=== PATIENT | female | born 2000 | race American Indian/Alaskan Native ===

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

== ENCOUNTER 2019-04-11 07:13 | Inpatient (IN) | payer OTHER ==
[2019-04-11] MEDS ORDERED: SODIUM CHLORIDE 0.9% 1000 ML 1,000 ML IV ONE ×2 (08:16→09:03)
[2019-04-11] MEDS ORDERED: ONDANSETRON 4 MG/2 ML INJ IV ONE ×2 (08:16→11:28)
[2019-04-11] MEDS ORDERED: PANTOPRAZOLE 40 MG INJ IV ONE (08:16)
[2019-04-11 08:37] LABS: Basophils % (Auto) 0.4 % (0.0-1.8); Eosinophils % (Auto) 0.2 % (0.0-4.3); Hematocrit 31.7 % (30.3-42.9); Hemoglobin 10.4 gm/dl (10.1-14.3); Lymphocytes # (Auto) 1.1 K/mm3 (1.2-5.4); Lymphocytes % (Auto) 16.8 % (13.4-35.0); Mean Corpuscular HGB Conc 33 % (30-34); Mean Corpuscular Volume 84 fl (79-97); Monocytes # (Auto) 0.2 K/mm3 (0.0-0.8); Monocytes % (Auto) 2.8 % (0.0-7.3); Platelet Count 243 K/mm3 (140-440); Red Blood Count 3.79 M/mm3 (3.65-5.03); Red Cell Distribution Width 19.2 % (13.2-15.2)
[2019-04-11 08:55] LABS: Creatine Kinase MB 1.4 ng/mL (0.0-4.0)
[2019-04-11 08:57] LABS: Alanine Aminotransferase 12 units/L (7-56); Albumin 4.4 g/dL (3.9-5); BUN/Creatinine Ratio 22; Blood Urea Nitrogen 13 mg/dL (7-17); Calcium 9.3 mg/dL (8.4-10.2); Hemolysis Index 0
[2019-04-11 09:07] LABS: Bilirubin,Direct < 0.2 mg/dL (0-0.2)
--- NOTE | 2019-04-11 09:15 | Emergency Department Report ---
ED General Adult HPI - General Chief complaint: Abdominal Pain Stated complaint: ABD PAIN Time Seen by Provider: 04/11/19 08:13 Source: EMS Mode of arrival: Wheelchair Limitations: No Limitations - History of Present Illness Initial comments: This is a 19-year-old female with a history of diabetic gastroparesis and apparently chronic pain. She does not usually come to this facility. She was seen and discharged a few times. Apparently she was verbal when EMS arrived. She expressed a desire to go to [place] for her gastroparesis symptoms. When she arrived at this facility she vomited. After that she ceased to be verbally responsive. An Accu-Chek was immediately obtained. Was found to be greater than 350. Nurses were unable to get access in the patient. Thereby I placed an external jugular line 22-gauge in the patient's neck. Fluid resuscitation was begun. She did appear to be substantially dehydrated. Vital signs were otherwise stabl e. Temperature is yet pending. -: unknown - Related Data Home Medications Medication Instructions Recorded Confirmed Last Taken Insulin NPH Hum/Reg Insulin Hm 1 each SQ 4XD 05/31/13 05/31/13 Unknown [Novolin 70-30 100 Unit/ml Vial] Previous Rx's Medication Instructions Recorded Last Taken Type Gentamicin 0.3% Ophth Soln 2 drops OP Q4H 5 Days bottle 10/27/14 Unknown Rx Amoxicillin [Amoxicillin TAB] 875 mg PO BID #20 tablet 03/13/17 Unknown Rx Gabapentin [Neurontin] 900 mg PO Q8HR #180 capsule 11/26/17 Unknown Rx Metoclopramide [Reglan] 10 mg PO BID #12 tab 12/12/17 Unknown Rx Famotidine [Pepcid] 20 mg PO BID #60 tablet 12/15/17 Unknown Rx Promethazine [Phenergan SUPPOS] 50 mg MI Q6H PRN #20 supp.rect 12/15/17 Unknown Rx Allergies Allergy/AdvReac Type Severity Reaction Status Date / Time clindamycin Allergy Swelling Verified 04/11/19 07:17 ED Review of Systems ROS: Stated complaint: ABD PAIN Other details as noted in HPI Comment: Unobtainable due to pts medical conditions ED Past Medical Hx - Past Medical History Hx Diabetes: Yes (on INSULIN) Additional medical history: Juvenile-onset diabetes, history of DKA. neuropathy - Social History Smoking Status: Never Smoker Substance Use Type: Marijuana - Medications Home Medications: Home Medications Medication Instructions Recorded Confirmed Last Taken Type Insulin NPH Hum/Reg Insulin Hm 1 each SQ 4XD 05/31/13 05/31/13 Unknown History [Novolin 70-30 100 Unit/ml Vial] Gentamicin 0.3% Ophth Soln 2 drops OP Q4H 5 Days bottle 10/27/14 Unknown Rx Amoxicillin [Amoxicillin TAB] 875 mg PO BID #20 tablet 03/13/17 Unknown Rx Gabapentin [Neurontin] 900 mg PO Q8HR #180 capsule 11/26/17 Unknown Rx Metoclopramide [Reglan] 10 mg PO BID #12 tab 12/12/17 Unknown Rx Famotidine [Pepcid] 20 mg PO BID #60 tablet 12/15/17 Unknown Rx Promethazine [Phenergan SUPPOS] 50 mg MI Q6H PRN #20 supp.rect 12/15/17 Unknown Rx ED Physical Exam - General Limitations: Altered Mental Status General appearance: lethargic - Head Head exam: Present: atraumatic, normocephalic - Eye Eye exam: Present: normal appearance, PERRL. Absent: scleral icterus - ENT ENT exam: Present: mucous membranes dry - Neck Neck exam: Present: normal inspection. Absent: tenderness, meningismus - Respiratory Respiratory exam: Present: normal lung sounds bilaterally. Absent: respiratory distress - Cardiovascular Cardiovascular Exam: Present: normal rhythm, tachycardia. Absent: systolic murmur, diastolic murmur, rubs, gallop - GI/Abdominal GI/Abdominal exam: Present: soft, normal bowel sounds. Absent: distended, tenderness, guarding, rebound, rigid - Extremities Exam Extremities exam: Present: normal inspection - Neurological Exam Neurological exam: Present: altered - Skin Skin exam: Present: warm, dry, intact, normal color. Absent: rash ED Course Vital Signs 04/11/19 04/11/19 04/11/19 07:19 09:15 10:00 Temperature 98.2 F Pulse Rate 103 H 106 H Respiratory 18 15 Rate Blood Pressure 144/110 157/109 O2 Sat by Pulse 98 100 100 Oximetry - Reevaluation(s) Reevaluation #1: Discussed with hospitalist. I am going to defer insulin drip for now. I believe is likely the patient will correct amply without a drip. She is gotten a saline bolus. She is gotten the supplemental potassium and IV insulin. Accu- Cheks will be monitored. Repeat BMP is ordered. 04/11/19 10:46 - EJ/Peripheral Line Neck L Time Out Performed: No Indications: nurses unable to establis Skin Cleansed in Sterile Fashion: Yes Size: 22 Dressing Placed: Tegaderm Patient Tolerated Procedure: well (Single attempt.) ED Medical Decision Making - Lab Data Result diagrams: 04/11/19 08:21 04/11/19 08:17 Laboratory Results - last 24 hr 04/11/19 04/11/19 04/11/19 08:17 08:18 08:19 WBC RBC Hgb Hct MCV MCH MCHC RDW Plt Count Lymph % (Auto) Woods % (Auto) Eos % (Auto) Baso % (Auto) Lymph # Woods # Eos # Baso # Seg Neutrophils % Seg Neutrophils # VBG pH Sodium 138 Potassium 3.6 Chloride 96.8 L Carbon Dioxide 19 L Anion Gap 26 BUN 13 Creatinine 0.6 L Estimated GFR > 60 BUN/Creatinine Ratio 22 Glucose 480 H POC Glucose Ketones Quantitative Lactic Acid 1.10 Calcium 9.3 Magnesium 2.10 Total Bilirubin 0.40 Direct Bilirubin < 0.2 Indirect Bilirubin 0.2 AST 16 ALT 12 Alkaline Phosphatase 83 Total Creatine Kinase 130 CK-MB (CK-2) 1.4 CK-MB (CK-2) Rel Index 1.0 Troponin T < 0.010 Total Protein 8.1 Albumin 4.4 Albumin/Globulin Ratio 1.2 Lipase 8 L HCG, Qual Negative 04/11/19 04/11/19 04/11/19 08:19 08:19 08:21 WBC 6.7 RBC 3.79 Hgb 10.4 Hct 31.7 MCV 84 MCH 27 L MCHC 33 RDW 19.2 H Plt Count 243 Lymph % (Auto) 16.8 Woods % (Auto) 2.8 Eos % (Auto) 0.2 Baso % (Auto) 0.4 Lymph # 1.1 L [place] # 0.2 Eos # 0.0 Baso # 0.0 Seg Neutrophils % 79.8 H Seg Neutrophils # 5.3 VBG pH 7.412 Sodium Potassium Chloride Carbon Dioxide Anion Gap BUN Creatinine Estimated GFR BUN/Creatinine Ratio Glucose POC Glucose Ketones Quantitative Small Lactic Acid Calcium Magnesium Total Bilirubin Direct Bilirubin Indirect Bilirubin AST ALT Alkaline Phosphatase Total Creatine Kinase CK-MB (CK-2) CK-MB (CK-2) Rel Index Troponin T Total Protein Albumin Albumin/Globulin Ratio Lipase HCG, Qual 04/11/19 08:24 WBC RBC Hgb Hct MCV MCH MCHC RDW Plt Count Lymph % (Auto) Woods % (Auto) Eos % (Auto) Baso % (Auto) Lymph # Woods # Eos # Baso # Seg Neutrophils % Seg Neutrophils # VBG pH Sodium Potassium Chloride Carbon Dioxide Anion Gap BUN Creatinine Estimated GFR BUN/Creatinine Ratio Glucose POC Glucose 354 H Ketones Quantitative Lactic Acid Calcium Magnesium Total Bilirubin Direct Bilirubin Indirect Bilirubin AST ALT Alkaline Phosphatase Total Creatine Kinase CK-MB (CK-2) CK-MB (CK-2) Rel Index Troponin T Total Protein Albumin Albumin/Globulin Ratio Lipase HCG, Qual Laboratory Results - last 24 hr 04/11/19 04/11/19 04/11/19 08:17 08:18 08:19 WBC RBC Hgb Hct MCV MCH MCHC RDW Plt Count Lymph % (Auto) [place] % (Auto) Eos % (Auto) Baso % (Auto) Lymph # [place] # Eos # Baso # Seg Neutrophils % Seg Neutrophils # VBG pH Sodium 138 Potassium 3.6 Chloride 96.8 L Carbon Dioxide 19 L Anion Gap 26 BUN 13 Creatinine 0.6 L Estimated GFR > 60 BUN/Creatinine Ratio 22 Glucose 480 H POC Glucose Ketones Quantitative Lactic Acid 1.10 Calcium 9.3 Magnesium 2.10 Total Bilirubin 0.40 Direct Bilirubin < 0.2 Indirect Bilirubin 0.2 AST 16 ALT 12 Alkaline Phosphatase 83 Total Creatine Kinase 130 CK-MB (CK-2) 1.4 CK-MB (CK-2) Rel Index 1.0 Troponin T < 0.010 Total Protein 8.1 Albumin 4.4 Albumin/Globulin Ratio 1.2 Lipase 8 L HCG, Qual Negative Urine Color Urine Turbidity Urine pH Ur Specific [place] Urine Protein Urine Glucose (UA) Urine Ketones Urine Blood Urine Nitrite Urine Bilirubin Urine Urobilinogen Ur Leukocyte Esterase Urine WBC (Auto) Urine RBC (Auto) U Epithel Cells (Auto) Urine Mucus Urine Opiates Screen Urine Methadone Screen Ur Barbiturates Screen Ur Phencyclidine Scrn Ur Amphetamines Screen U Benzodiazepines Scrn Urine Cocaine Screen U Marijuana (THC) Screen Drugs of Abuse Note 04/11/19 04/11/19 04/11/19 08:19 08:19 08:21 WBC 6.7 RBC 3.79 Hgb 10.4 Hct 31.7 MCV 84 MCH 27 L MCHC 33 RDW 19.2 H Plt Count 243 Lymph % (Auto) 16.8 Woods % (Auto) 2.8 Eos % (Auto) 0.2 Baso % (Auto) 0.4 Lymph # 1.1 L Woods # 0.2 Eos # 0.0 Baso # 0.0 Seg Neutrophils % 79.8 H Seg Neutrophils # 5.3 VBG pH 7.412 Sodium Potassium Chloride Carbon Dioxide Anion Gap BUN Creatinine Estimated GFR BUN/Creatinine Ratio Glucose POC Glucose Ketones Quantitative Small Lactic Acid Calcium Magnesium Total Bilirubin Direct Bilirubin Indirect Bilirubin AST ALT Alkaline Phosphatase Total Creatine Kinase CK-MB (CK-2) CK-MB (CK-2) Rel Index Troponin T Total Protein Albumin Albumin/Globulin Ratio Lipase HCG, Qual Urine Color Urine Turbidity Urine pH Ur Specific [place] Urine Protein Urine Glucose (UA) Urine Ketones Urine Blood Urine Nitrite Urine Bilirubin Urine Urobilinogen Ur Leukocyte Esterase Urine WBC (Auto) Urine RBC (Auto) U Epithel Cells (Auto) Urine Mucus Urine Opiates Screen Urine Methadone Screen Ur Barbiturates Screen Ur Phencyclidine Scrn Ur Amphetamines Screen U Benzodiazepines Scrn Urine Cocaine Screen U Marijuana (THC) Screen Drugs of Abuse Note 04/11/19 04/11/19 04/11/19 08:24 10:20 Unknown WBC RBC Hgb Hct MCV MCH MCHC RDW Plt Count Lymph % (Auto) Woods % (Auto) Eos % (Auto) Baso % (Auto) Lymph # [place] # Eos # Baso # Seg Neutrophils % Seg Neutrophils # VBG pH Sodium Potassium Chloride Carbon Dioxide Anion Gap BUN Creatinine Estimated GFR BUN/Creatinine Ratio Glucose POC Glucose 354 H 371 H Ketones Quantitative Lactic Acid Calcium Magnesium Total Bilirubin Direct Bilirubin Indirect Bilirubin AST ALT Alkaline Phosphatase Total Creatine Kinase CK-MB (CK-2) CK-MB (CK-2) Rel Index Troponin T Total Protein Albumin Albumin/Globulin Ratio Lipase HCG, Qual Urine Color Straw Urine Turbidity Clear Urine pH 6.0 Ur Specific [place] 1.030 Urine Protein 30 mg/dl Urine Glucose (UA) >=500 Urine Ketones 80 Urine Blood Sm Urine Nitrite Neg Urine Bilirubin Neg Urine Urobilinogen < 2.0 Ur Leukocyte Esterase Neg Urine WBC (Auto) < 1.0 Urine RBC (Auto) 4.0 U Epithel Cells (Auto) < 1.0 Urine Mucus Few Urine Opiates Screen Urine Methadone Screen Ur Barbiturates Screen Ur Phencyclidine Scrn Ur Amphetamines Screen U Benzodiazepines Scrn Urine Cocaine Screen U Marijuana (THC) Screen Drugs of Abuse Note 04/11/19 Unknown WBC RBC Hgb Hct MCV MCH MCHC RDW Plt Count Lymph % (Auto) [place] % (Auto) Eos % (Auto) Baso % (Auto) Lymph # [place] # Eos # Baso # Seg Neutrophils % Seg Neutrophils # VBG pH Sodium Potassium Chloride Carbon Dioxide Anion Gap BUN Creatinine Estimated GFR BUN/Creatinine Ratio Glucose POC Glucose Ketones Quantitative Lactic Acid Calcium Magnesium Total Bilirubin Direct Bilirubin Indirect Bilirubin AST ALT Alkaline Phosphatase Total Creatine Kinase CK-MB (CK-2) CK-MB (CK-2) Rel Index Troponin T Total Protein Albumin Albumin/Globulin Ratio Lipase HCG, Qual Urine Color Urine Turbidity Urine pH Ur Specific [place] Urine Protein Urine Glucose (UA) Urine Ketones Urine Blood Urine Nitrite Urine Bilirubin Urine Urobilinogen Ur Leukocyte Esterase Urine WBC (Auto) Urine RBC (Auto) U Epithel Cells (Auto) Urine Mucus Urine Opiates Screen Presumptive negative Urine Methadone Screen Presumptive negative Ur Barbiturates Screen Presumptive negative Ur Phencyclidine Scrn Presumptive negative Ur Amphetamines Screen Presumptive negative U Benzodiazepines Scrn Presumptive negative Urine Cocaine Screen Presumptive negative U Marijuana (THC) Screen Presumptive positive Drugs of Abuse Note Disclamer - Radiology Data Radiology results: report reviewed (Chest x-ray and CT the head no acute process) Critical care attestation.: If time is entered above; I have spent that time in minutes in the direct care of this critically ill patient, excluding procedure time. ED Disposition Clinical Impression: Hyperglycemia due to type 1 diabetes mellitus, Diabetic gastroparesis Disposition: OP ADMIT IP TO THIS HOSP Is pt being admited?: Yes Does the pt Need Aspirin: No Condition: Stable Instructions: Abdominal Pain (ED), Diabetes Mellitus Type 2 in Adults (ED) Referrals: PRIMARY CARE, [Primary Care Provider] - 3-5 Days Time of Disposition: 10:47
[2019-04-11 09:47] LABS: Bilirubin,Urine NEG (Negative); Blood,Urine SM (Negative); Color,Urine Straw (Yellow); Mucus,Urine FEW /HPF; Urobilinogen,Urine < 2.0 mg/dL (<2.0); WBC,Urine < 1.0 /HPF (0.0-6.0)
[2019-04-11] MEDS ORDERED: POTASSIUM CHLORIDE ER 20 MEQ TAB PO ONE (09:53)
[2019-04-11] MEDS ORDERED: INSULIN REGULAR, HUMAN 100 UNITS/1 ML IV ONE (09:53)
[2019-04-11 09:54] LABS: Amphetamine Screen,Urine PRESUMPTIVE NEGATIVE; Benzodiazepines Screen,Urine PRESUMPTIVE NEGATIVE; Cocaine Screen,Urine PRESUMPTIVE NEGATIVE; Methadone Screen,Urine PRESUMPTIVE NEGATIVE; Opiate Screen,Urine PRESUMPTIVE NEGATIVE
--- NOTE | 2019-04-11 10:07 | Cat Scan Report ---
CT HEAD WITHOUT CONTRAST INDICATION / CLINICAL INFORMATION: Altered mental status. TECHNIQUE: Axial imaging performed from the skull apex through the skull base without the use of cont rast. Sagittal and coronal reformatted images. All CT scans at this location are performed using CT dose reduction for ALARA by means of automated exposure control. COMPARISON: None available. FINDINGS: CEREBRAL PARENCHYMA: No significant abnormality. No acute territorial infarct. HEMORRHAGE: None. EXTRA-AXIAL SPACES: Normal in size and morphology for the patient's age. VENTRICULAR SYSTEM: Normal in size and morphology for the patient's age. MIDLINE SHIFT OR HERNIATION: None. CEREBELLUM / BRAINSTEM: No significant abnormality. CALVARIUM: No significant abnormality. ORBITS: Normal as visualized. PARANASAL SINUSES / MASTOID AIR CELLS: Normal as visualized. SOFT TISSUES of HEAD: No significant abnormality. ADDITIONAL FINDINGS: None. IMPRESSION: No acute intracranial abnormality. Signer Name: Wu De Dios Jr, MD Signed: 04/11/2019 10:03 AM Workstation Name: [id number]
--- NOTE | 2019-04-11 10:13 | XRay Report ---
CHEST 1 VIEW INDICATION: hypertension. COMPARISON: None FINDINGS: Support devices: None. Heart: Within normal limits. Lungs/Pleura: No acute air space or interstitial disease. Additional findings: None. IMPRESSION: No acute findings. Signer Name: Wu De Dios Jr, MD Signed: 04/11/2019 10:09 AM Workstation Name: [id number]
[2019-04-11 10:23] LABS: Cannabinoid Screen,Urine PRESUMPTIVE POSITIVE
[2019-04-11] MEDS: POTASSIUM CHLORIDE 10 MEQ 10 MEQ/100 ML BAG IV SCH ×5 (10:29→15:20)
[2019-04-11] MEDS ORDERED: DEXTROSE 50% IN WATER (25GM) 50 ML SYRINGE IV PRN ×2 (11:27→12:27)
[2019-04-11] MEDS ORDERED: ACETAMINOPHEN 325 MG TAB PO PRN (11:27)
--- NOTE | 2019-04-11 11:27 | History and Physical Report ---
History of Present Illness Chief complaint: Intractable nausea vomiting History of present illness: 19-year-old woman with history of type 1 diabetes who presents to the hospital intractable nausea vomiting and abdominal pain. She states that she has diabetic gastroparesis that she normally follows at [facility]. She has frequent bouts of gastroparesis. At this time she is complaining of nausea and abdominal pain. She has vomited several times. She denies fever chills dysuria Past medical history; diabetes, gastroparesis Past surgical history; denies major surgeries Family history, denies family history of diabetes Social history; denies alcohol abuse or tobacco abuse. Admits to marijuana abuse, states that it helps her abdominal symptoms/GI tract. Lives at home with family. Medications and Allergies Allergies Allergy/AdvReac Type Severity Reaction Status Date / Time clindamycin Allergy Swelling Verified 04/11/19 07:17 Home Medications Medication Instructions Recorded Confirmed Last Taken Type Insulin NPH Hum/Reg Insulin Hm 1 each SQ 4XD 05/31/13 04/12/19 04/10/19 History [Novolin 70-30 100 Unit/ml Vial] Gentamicin 0.3% Ophth Soln 2 drops OP Q4H 5 Days bottle 10/27/14 04/12/19 Unknown Rx Amoxicillin [Amoxicillin TAB] 875 mg PO BID #20 tablet 03/13/17 04/12/19 Unknown Rx Gabapentin [Neurontin] 900 mg PO Q8HR #180 capsule 11/26/17 04/12/19 Unknown Rx Metoclopramide [Reglan] 10 mg PO BID #12 tab 12/12/17 04/12/19 Unknown Rx Famotidine [Pepcid] 20 mg PO BID #60 tablet 12/15/17 04/12/19 Unknown Rx Promethazine [Phenergan SUPPOS] 50 mg NV Q6H PRN #20 supp.rect 12/15/17 04/12/19 Unknown Rx Active Meds: Active Medications Potassium Chloride (Kcl 10meq/100ml) 10 meq in 100 mls @ 100 mls/hr IV Q1H BRIANNA Stop: 04/11/19 14:59 Last Admin: 04/11/19 10:29 Dose: 100 mls/hr Documented by: Review of Systems All systems: negative (As stated in HPI) Exam - Constitutional Vitals: Temp Pulse Resp BP Pulse Ox 98.2 F 106 H 15 157/109 100 04/11/19 07:19 04/11/19 10:00 04/11/19 10:00 04/11/19 10:00 04/11/19 10:00 General appearance: Present: mild distress, well-nourished - EENT Eyes: Present: PERRL ENT: hearing intact, clear oral mucosa (Dry mucous membranes) - Neck Neck: Present: supple, normal ROM - Respiratory Respiratory effort: normal Respiratory: bilateral: CTA - Cardiovascular Heart Sounds: Present: S1 & S2. Absent: rub, click - Extremities Extremities: pulses symmetrical, No edema Peripheral Pulses: within normal limits - Abdominal General gastrointestinal: Present: soft, non-tender, non-distended, normal bowel sounds Female genitourinary: Present: normal - Integumentary Integumentary: Present: clear, warm, dry - Musculoskeletal Musculoskeletal: gait normal, strength equal bilaterally - Psychiatric Psychiatric: appropriate mood/affect, intact judgment & insight - Neurologic Neurologic: CNII-XII intact, moves all extremities Results - Labs CBC & Chem 7: 04/12/19 04:00 04/14/19 08:39 Labs: Laboratory Last Values WBC 6.7 K/mm3 (4.5-11.0) 04/11/19 08:21 RBC 3.79 M/mm3 (3.65-5.03) 04/11/19 08:21 Hgb 10.4 gm/dl (10.1-14.3) 04/11/19 08:21 Hct 31.7 % (30.3-42.9) 04/11/19 08:21 MCV 84 fl (79-97) 04/11/19 08:21 MCH 27 pg (28-32) L 04/11/19 08:21 MCHC 33 % (30-34) 04/11/19 08:21 RDW 19.2 % (13.2-15.2) H 04/11/19 08:21 Plt Count 243 K/mm3 (140-440) 04/11/19 08:21 Lymph % (Auto) 16.8 % (13.4-35.0) 04/11/19 08:21 [place] % (Auto) 2.8 % (0.0-7.3) 04/11/19 08:21 Eos % (Auto) 0.2 % (0.0-4.3) 04/11/19 08:21 Baso % (Auto) 0.4 % (0.0-1.8) 04/11/19 08:21 Lymph # 1.1 K/mm3 (1.2-5.4) L 04/11/19 08:21 [place] # 0.2 K/mm3 (0.0-0.8) 04/11/19 08:21 Eos # 0.0 K/mm3 (0.0-0.4) 04/11/19 08:21 Baso # 0.0 K/mm3 (0.0-0.1) 04/11/19 08:21 Seg Neutrophils % 79.8 % (40.0-70.0) H 04/11/19 08:21 Seg Neutrophils # 5.3 K/mm3 (1.8-7.7) 04/11/19 08:21 VBG pH 7.412 (7.320-7.420) 04/11/19 08:19 Sodium 138 mmol/L (137-145) 04/11/19 08:17 Potassium 3.6 mmol/L (3.6-5.0) 04/11/19 08:17 Chloride 96.8 mmol/L (98-107) L 04/11/19 08:17 Carbon Dioxide 19 mmol/L (22-30) L 04/11/19 08:17 Anion Gap 26 mmol/L 04/11/19 08:17 BUN 13 mg/dL (7-17) 04/11/19 08:17 Creatinine 0.6 mg/dL (0.7-1.2) L 04/11/19 08:17 Estimated GFR > 60 ml/min 04/11/19 08:17 BUN/Creatinine Ratio 22 % 04/11/19 08:17 Glucose 480 mg/dL (65-100) H 04/11/19 08:17 POC Glucose 371 (70-105) H 04/11/19 10:20 Ketones Quantitative Small (Negative) 04/11/19 08:19 Lactic Acid 1.10 mmol/L (0.7-2.0) 04/11/19 08:19 Calcium 9.3 mg/dL (8.4-10.2) 04/11/19 08:17 Magnesium 2.10 mg/dL (1.7-2.3) 04/11/19 08:17 Total Bilirubin 0.40 mg/dL (0.1-1.2) 04/11/19 08:17 Direct Bilirubin < 0.2 mg/dL (0-0.2) 04/11/19 08:17 Indirect Bilirubin 0.2 mg/dL 04/11/19 08:17 AST 16 units/L (5-40) 04/11/19 08:17 ALT 12 units/L (7-56) 04/11/19 08:17 Alkaline Phosphatase 83 units/L (35-129) 04/11/19 08:17 Total Creatine Kinase 130 units/L (30-135) 04/11/19 08:17 CK-MB (CK-2) 1.4 ng/mL (0.0-4.0) 04/11/19 08:17 CK-MB (CK-2) Rel Index 1.0 (0-4) 04/11/19 08:17 Troponin T < 0.010 ng/mL (0.00-0.029) 04/11/19 08:17 Total Protein 8.1 g/dL (6.3-8.2) 04/11/19 08:17 Albumin 4.4 g/dL (3.9-5) 04/11/19 08:17 Albumin/Globulin Ratio 1.2 % 04/11/19 08:17 Lipase 8 units/L (13-60) L 04/11/19 08:17 HCG, Qual Negative (Negative) 04/11/19 08:18 Urine Color Straw (Yellow) 04/11/19 Unknown Urine Turbidity Clear (Clear) 04/11/19 Unknown Urine pH 6.0 (5.0-7.0) 04/11/19 Unknown Ur Specific [place] 1.030 (1.003-1.030) 04/11/19 Unknown Urine Protein 30 mg/dl mg/dL (Negative) 04/11/19 Unknown Urine Glucose (UA) >=500 mg/dL (Negative) 04/11/19 Unknown Urine Ketones 80 mg/dL (Negative) 04/11/19 Unknown Urine Blood Sm (Negative) 04/11/19 Unknown Urine Nitrite Neg (Negative) 04/11/19 Unknown Urine Bilirubin Neg (Negative) 04/11/19 Unknown Urine Urobilinogen < 2.0 mg/dL (<2.0) 04/11/19 Unknown Ur Leukocyte Esterase Neg (Negative) 04/11/19 Unknown Urine WBC (Auto) < 1.0 /HPF (0.0-6.0) 04/11/19 Unknown Urine RBC (Auto) 4.0 /HPF (0.0-6.0) 04/11/19 Unknown U Epithel Cells (Auto) < 1.0 /HPF (0-13.0) 04/11/19 Unknown Urine Mucus Few /HPF 04/11/19 Unknown Urine Opiates Screen Presumptive negative 04/11/19 Unknown Urine Methadone Screen Presumptive negative 04/11/19 Unknown Ur Barbiturates Screen Presumptive negative 04/11/19 Unknown Ur Phencyclidine Scrn Presumptive negative 04/11/19 Unknown Ur Amphetamines Screen Presumptive negative 04/11/19 Unknown U Benzodiazepines Scrn Presumptive negative 04/11/19 Unknown Urine Cocaine Screen Presumptive negative 04/11/19 Unknown U Marijuana (THC) Screen Presumptive positive 04/11/19 Unknown Drugs of Abuse Note Disclamer 04/11/19 Unknown Assessment and Plan Assessment and plan: 19-year-old woman with type 1 diabetes who presents with hyperglycemia. Patient also complaining of intractable nausea and vomiting due to gastroparesis, she then became less responsive. Type 1 insulin-dependent diabetes with persistent hyperglycemia Insulins, IV fluids Diabetic gastroparesis Antiemetics, bowel rest Diabetic neuropathy Continue gabapentin Dehydration; IV fluids Elevated blood pressure Does not have a history of hypertension, hydralazine as needed monitor blood pressure curve Marijuana abuse Preventative health counseling performed for 17 minutes DVT prophylaxis; early ambulation Critical care time 35 minutes
[2019-04-11] MEDS ORDERED: METOCLOPRAMIDE 10 MG/2 ML INJ IV ONE (11:28)
[2019-04-11] MEDS ORDERED: SODIUM CHLORIDE 0.9% 1000 ML 1,000 ML with POTASSIUM CHLORIDE 20 MEQ IV SCH (11:30)
[2019-04-11] MEDS ORDERED: POTASSIUM CHLORIDE 10 MEQ 10 MEQ/100 ML BAG IV ONE ×3 (11:48→14:48)
[2019-04-11 12:04] LABS: BUN/Creatinine Ratio 22; Blood Urea Nitrogen 13 mg/dL (7-17); Calcium 8.7 mg/dL (8.4-10.2); Hemolysis Index 23
[2019-04-11] MEDS ORDERED: KETOROLAC 30 MG/1 ML INJ IV PRN (12:58)
[2019-04-11] MEDS ORDERED: INSULIN REGULAR, HUMAN 100 UNITS in SODIUM CHLORIDE 0.9% 99 ML IV SCH ×2 (13:00→14:00)
[2019-04-11] MEDS ORDERED: METOCLOPRAMIDE 10 MG/2 ML INJ ONE (13:36)
[2019-04-11 13:40] LABS: BUN/Creatinine Ratio 19; Blood Urea Nitrogen 13 mg/dL (7-17); Calcium 8.6 mg/dL (8.4-10.2); Hemolysis Index 24
[2019-04-11] MEDS: INSULIN LISPRO 100 UNIT/ML SUB-Q SCH ×2 (13:43→17:05)
[2019-04-11] MEDS: METOCLOPRAMIDE 10 MG/2 ML INJ IV PRN ×2 (13:43→19:25)
[2019-04-11] MEDS: INSULIN REGULAR, HUMAN 100 UNITS/1 ML SUB-Q SCH (13:43)
[2019-04-11] MEDS: GENTAMICIN 0.3% OPHTH SOLN 5 ML OU SCH ×3 (13:43→21:42)
[2019-04-11 13:50] LABS: BUN/Creatinine Ratio 22; Blood Urea Nitrogen 13 mg/dL (7-17); Calcium 8.8 mg/dL (8.4-10.2); Hemolysis Index 11
[2019-04-11] MEDS: GABAPENTIN 300 MG CAP PO SCH ×2 (14:56→23:21)
[2019-04-11] MEDS: NACL 0.9%/KCL 20 MEQ 20 MEQ/1,000 ML BAG IV SCH ×2 (16:33→23:23)
[2019-04-11] MEDS ORDERED: INSULIN NPH/REGULAR 70/30 INJ SUB-Q SCH ×3 (17:00)
[2019-04-11] MEDS: ONDANSETRON 4 MG/2 ML INJ IV PRN ×2 (18:05→21:39)
[2019-04-11] MEDS: hydrALAZINE 20 MG/1 ML INJ IV PRN (18:06)
[2019-04-11 21:52] LABS: BUN/Creatinine Ratio 20; Blood Urea Nitrogen 12 mg/dL (7-17); Calcium 8.7 mg/dL (8.4-10.2); Hemolysis Index 1
[2019-04-11] MEDS: PROMETHAZINE 50 MG RECT SUPP PR PRN (21:56)
[2019-04-11] MEDS: FAMOTIDINE 20 MG TAB PO SCH (23:21)
[2019-04-12] MEDS: INSULIN LISPRO 100 UNIT/ML SUB-Q SCH ×4 (02:23→17:28)
[2019-04-12] MEDS: GENTAMICIN 0.3% OPHTH SOLN 5 ML OU SCH ×6 (02:24→21:55)
[2019-04-12 04:30] LABS: Hematocrit 31.2 % (30.3-42.9); Mean Corpuscular HGB Conc 32 % (30-34); Mean Corpuscular Volume 85 fl (79-97); Platelet Count 272 K/mm3 (140-440); Red Blood Count 3.68 M/mm3 (3.65-5.03); Red Cell Distribution Width 19.9 % (13.2-15.2)
[2019-04-12 04:43] LABS: BUN/Creatinine Ratio 20; Blood Urea Nitrogen 12 mg/dL (7-17); Calcium 8.3 mg/dL (8.4-10.2); Hemolysis Index 5
[2019-04-12] MEDS: SODIUM CHLORIDE 0.45% 1000 ML 1,000 ML IV SCH ×3 (05:02→17:35)
[2019-04-12 05:43] LABS: Basophils % (Manual) 0 % (0.0-1.8); Eosinophils % (Manual) 0 % (0.0-4.3); Ovalocytes Few; Platelet Estimate Consistent w Auto; Schistocytes Rare; Total Cells Counted 100
[2019-04-12] MEDS: PROMETHAZINE 50 MG RECT SUPP PR PRN ×2 (06:40→17:29)
[2019-04-12] MEDS: GABAPENTIN 300 MG CAP PO SCH ×3 (06:40→21:45)
[2019-04-12] MEDS: ONDANSETRON 4 MG/2 ML INJ IV PRN ×3 (06:40→21:45)
[2019-04-12] MEDS: hydrALAZINE 20 MG/1 ML INJ IV PRN ×2 (07:09→13:50)
[2019-04-12] MEDS: METOCLOPRAMIDE 10 MG/2 ML INJ IV PRN (07:44)
[2019-04-12] MEDS: FAMOTIDINE 20 MG TAB PO SCH ×2 (10:55→21:58)
[2019-04-12 12:48] LABS: BUN/Creatinine Ratio 18; Blood Urea Nitrogen 11 mg/dL (7-17); Calcium 8.1 mg/dL (8.4-10.2); Hemolysis Index 2
[2019-04-12] MEDS ORDERED: LORazepam 2 MG/ML VIAL IV PRN (13:01)
[2019-04-12] MEDS: INSULIN REGULAR, HUMAN 100 UNITS/1 ML SUB-Q SCH (13:01)
--- NOTE | 2019-04-12 13:02 | Progress Note ---
Assessment and Plan Assessment and plan: 19-year-old woman with type 1 diabetes who presents with hyperglycemia. Patient also complaining of intractable nausea and vomiting due to gastroparesis, she then became less responsive. Type 1 insulin-dependent diabetes with persistent hyperglycemia Off insulin drip, now subcutaneous insulins, Diabetic gastroparesis Antiemetics, bowel rest Diabetic neuropathy Continue gabapentin Dehydration; IV fluids Elevated blood pressure Does not have a history of hypertension, hydralazine as needed monitor blood pressure curve Marijuana abuse Preventative health counseling performed for 17 minutes DVT prophylaxis; early ambulation History Interval history: Review of systems Constitutional: No fevers, no malaise, no joint pains CVS: No chest pain, no orthopnea, no dyspnea on exertion, no pedal edema GI: Continues to complain of nausea, Respiratory: no wheezing, no coughing Hospitalist Physical - Physical exam Narrative exam: General.: Mild distress HEENT: Moist mucous membranes, extraocular muscles intact, no lymphadenopathy Neck: supple Cardiac: S1-S2 heard Lungs: clear to auscultation bilaterally Abdomen: soft , nontender, nondistended, bowel sounds positive Extremities: no edema clubbing or cyanosis Skin: no rash or lesions Neurologic: no gross focal deficits Psych: calm, and cooperative - Constitutional Vitals: Temp Pulse Resp BP Pulse Ox 97.9 F 112 H 18 147/96 100 04/12/19 08:00 04/12/19 10:00 04/12/19 10:00 04/12/19 10:00 04/12/19 10:00 Results - Labs CBC & Chem 7: 04/12/19 04:00 04/14/19 08:39 Labs: Laboratory Last Values WBC 15.0 K/mm3 (4.5-11.0) H 04/12/19 04:00 RBC 3.68 M/mm3 (3.65-5.03) 04/12/19 04:00 Hgb 10.0 gm/dl (10.1-14.3) L 04/12/19 04:00 Hct 31.2 % (30.3-42.9) 04/12/19 04:00 MCV 85 fl (79-97) 04/12/19 04:00 MCH 27 pg (28-32) L 04/12/19 04:00 MCHC 32 % (30-34) 04/12/19 04:00 RDW 19.9 % (13.2-15.2) H 04/12/19 04:00 Plt Count 272 K/mm3 (140-440) 04/12/19 04:00 Lymph % (Auto) 16.8 % (13.4-35.0) 04/11/19 08:21 [place] % (Auto) 2.8 % (0.0-7.3) 04/11/19 08:21 Eos % (Auto) 0.2 % (0.0-4.3) 04/11/19 08:21 Baso % (Auto) 0.4 % (0.0-1.8) 04/11/19 08: Lymph # 1.1 K/mm3 (1.2-5.4) L 04/11/19 08:21 [place] # 0.2 K/mm3 (0.0-0.8) 04/11/19 08:21 Eos # 0.0 K/mm3 (0.0-0.4) 04/11/19 08: Baso # 0.0 K/mm3 (0.0-0.1) 04/11/19 08:21 Add Manual Diff Complete 04/12/19 04:00 Total Counted 100 04/12/19 04:00 Seg Neutrophils % 79.8 % (40.0-70.0) H 04/11/19 08:21 Seg Neuts % (Manual) 74.0 % (40.0-70.0) H 04/12/19 04:00 Band Neutrophils % 0 % 04/12/19 04:00 Lymphocytes % (Manual) 18.0 % (13.4-35.0) 04/12/19 04:00 Reactive Lymphs % (Man) 0 % 04/12/19 04:00 Monocytes % (Manual) 8.0 % (0.0-7.3) H 04/12/19 04:00 Eosinophils % (Manual) 0 % (0.0-4.3) 04/12/19 04:00 Basophils % (Manual) 0 % (0.0-1.8) 04/12/19 04:00 Metamyelocytes % 0 % 04/12/19 04:00 Myelocytes % 0 % 04/12/19 04:00 Promyelocytes % 0 % 04/12/19 04:00 Blast Cells % 0 % 04/12/19 04:00 Nucleated RBC % Not Reportable 04/12/19 04:00 Seg Neutrophils # 5.3 K/mm3 (1.8-7.7) 04/11/19 08:21 Seg Neutrophils # Man 11.1 K/mm3 (1.8-7.7) H 04/12/19 04:00 Band Neutrophils # 0.0 K/mm3 04/12/19 04:00 Lymphocytes # (Manual) 2.7 K/mm3 (1.2-5.4) 04/12/19 04:00 Abs React Lymphs (Man) 0.0 K/mm3 04/12/19 04:00 Monocytes # (Manual) 1.2 K/mm3 (0.0-0.8) H 04/12/19 04:00 Eosinophils # (Manual) 0.0 K/mm3 (0.0-0.4) 04/12/19 04:00 Basophils # (Manual) 0.0 K/mm3 (0.0-0.1) 04/12/19 04:00 Metamyelocytes # 0.0 K/mm3 04/12/19 04:00 Myelocytes # 0.0 K/mm3 04/12/19 04:00 Promyelocytes # 0.0 K/mm3 04/12/19 04:00 Blast Cells # 0.0 K/mm3 04/12/19 04:00 WBC Morphology Not Reportable 04/12/19 04:00 Hypersegmented Neuts Not Reportable 04/12/19 04:00 Hyposegmented Neuts Not Reportable 04/12/19 04:00 Hypogranular Neuts Not Reportable 04/12/19 04:00 Smudge Cells Not Reportable 04/12/19 04:00 Toxic Granulation Not Reportable 04/12/19 04:00 Toxic Vacuolation Not Reportable 04/12/19 04:00 Dohle Bodies Not Reportable 04/12/19 04:00 Pelger-Huet Anomaly Not Reportable 04/12/19 04:00 Navi Rods Not Reportable 04/12/19 04:00 Platelet Estimate Consistent w auto 04/12/19 04:00 Clumped Platelets Not Reportable 04/12/19 04:00 Plt Clumps, EDTA Not Reportable 04/12/19 04:00 Large Platelets Not Reportable 04/12/19 04:00 Giant Platelets Not Reportable 04/12/19 04:00 Platelet Satelliting Not Reportable 04/12/19 04:00 Plt Morphology Comment Not Reportable 04/12/19 04:00 RBC Morphology Not Reportable 04/12/19 04:00 Dimorphic RBCs Not Reportable 04/12/19 04:00 Polychromasia Not Reportable 04/12/19 04:00 Hypochromasia Not Reportable 04/12/19 04:00 Poikilocytosis Not Reportable 04/12/19 04:00 Anisocytosis Not Reportable 04/12/19 04:00 Microcytosis Not Reportable 04/12/19 04:00 Macrocytosis Not Reportable 04/12/19 04:00 Spherocytes Not Reportable 04/12/19 04:00 Pappenheimer Bodies Not Reportable 04/12/19 04:00 Sickle Cells Not Reportable 04/12/19 04:00 Target Cells Not Reportable 04/12/19 04:00 Tear Drop Cells Not Reportable 04/12/19 04:00 Ovalocytes Few 04/12/19 04:00 Helmet Cells Not Reportable 04/12/19 04:00 Perez-Gholson Bodies Not Reportable 04/12/19 04:00 [place] Rings Not Reportable 04/12/19 04:00 Alanna Cells Not Reportable 04/12/19 04:00 Bite Cells Not Reportable 04/12/19 04:00 Crenated Cell Not Reportable 04/12/19 04:00 Elliptocytes Not Reportable 04/12/19 04:00 Acanthocytes (Spur) Not Reportable 04/12/19 04:00 Rouleaux Not Reportable 04/12/19 04:00 Hemoglobin C Crystals Not Reportable 04/12/19 04:00 Schistocytes Rare 04/12/19 04:00 Malaria parasites Not Reportable 04/12/19 04:00 Evaristo Bodies Not Reportable 04/12/19 04:00 Hem Pathologist Commnt No 04/12/19 04:00 VBG pH 7.412 (7.320-7.420) 04/11/19 08:19 Sodium 138 mmol/L (137-145) 04/12/19 12:12 Potassium 3.9 mmol/L (3.6-5.0) 04/12/19 12:12 Chloride 105.8 mmol/L (98-107) 04/12/19 12:12 Carbon Dioxide 17 mmol/L (22-30) L 04/12/19 12:12 Anion Gap 19 mmol/L 04/12/19 12:12 BUN 11 mg/dL (7-17) 04/12/19 12:12 Creatinine 0.6 mg/dL (0.7-1.2) L 04/12/19 12:12 Estimated GFR > 60 ml/min 04/12/19 12:12 BUN/Creatinine Ratio 18 % 04/12/19 12:12 Glucose 171 mg/dL (65-100) H 04/12/19 12:12 POC Glucose 138 (70-105) H 04/12/19 12:28 Hemoglobin A1c 10.4 % (4-6) H 04/11/19 11:37 Ketones Quantitative Small (Negative) 04/11/19 08:19 Lactic Acid 1.10 mmol/L (0.7-2.0) 04/11/19 08:19 Calcium 8.1 mg/dL (8.4-10.2) L 04/12/19 12:12 Magnesium 2.10 mg/dL (1.7-2.3) 04/11/19 08:17 Total Bilirubin 0.40 mg/dL (0.1-1.2) 04/11/19 08:17 Direct Bilirubin < 0.2 mg/dL (0-0.2) 04/11/19 08:17 Indirect Bilirubin 0.2 mg/dL 04/11/19 08:17 AST 16 units/L (5-40) 04/11/19 08:17 ALT 12 units/L (7-56) 04/11/19 08:17 Alkaline Phosphatase 83 units/L (35-129) 04/11/19 08:17 Total Creatine Kinase 130 units/L (30-135) 04/11/19 08:17 CK-MB (CK-2) 1.4 ng/mL (0.0-4.0) 04/11/19 08:17 CK-MB (CK-2) Rel Index 1.0 (0-4) 04/11/19 08:17 Troponin T < 0.010 ng/mL (0.00-0.029) 04/11/19 08:17 Total Protein 8.1 g/dL (6.3-8.2) 04/11/19 08:17 Albumin 4.4 g/dL (3.9-5) 04/11/19 08:17 Albumin/Globulin Ratio 1.2 % 04/11/19 08:17 Lipase 8 units/L (13-60) L 04/11/19 08:17 HCG, Qual Negative (Negative) 04/11/19 08:18 Urine Color Straw (Yellow) 04/11/19 Unknown Urine Turbidity Clear (Clear) 04/11/19 Unknown Urine pH 6.0 (5.0-7.0) 04/11/19 Unknown Ur Specific [place] 1.030 (1.003-1.030) 04/11/19 Unknown Urine Protein 30 mg/dl mg/dL (Negative) 04/11/19 Unknown Urine Glucose (UA) >=500 mg/dL (Negative) 04/11/19 Unknown Urine Ketones 80 mg/dL (Negative) 04/11/19 Unknown Urine Blood Sm (Negative) 04/11/19 Unknown Urine Nitrite Neg (Negative) 04/11/19 Unknown Urine Bilirubin Neg (Negative) 04/11/19 Unknown Urine Urobilinogen < 2.0 mg/dL (<2.0) 04/11/19 Unknown Ur Leukocyte Esterase Neg (Negative) 04/11/19 Unknown Urine WBC (Auto) < 1.0 /HPF (0.0-6.0) 04/11/19 Unknown Urine RBC (Auto) 4.0 /HPF (0.0-6.0) 04/11/19 Unknown U Epithel Cells (Auto) < 1.0 /HPF (0-13.0) 04/11/19 Unknown Urine Mucus Few /HPF 04/11/19 Unknown Urine Opiates Screen Presumptive negative 04/11/19 Unknown Urine Methadone Screen Presumptive negative 04/11/19 Unknown Ur Barbiturates Screen Presumptive negative 04/11/19 Unknown Ur Phencyclidine Scrn Presumptive negative 04/11/19 Unknown Ur Amphetamines Screen Presumptive negative 04/11/19 Unknown U Benzodiazepines Scrn Presumptive negative 04/11/19 Unknown Urine Cocaine Screen Presumptive negative 04/11/19 Unknown U Marijuana (THC) Screen Presumptive positive 04/11/19 Unknown Drugs of Abuse Note Disclamer 04/11/19 Unknown Active Medications - Current Medications Current Medications: Generic Name Dose Route Start Last Admin Trade Name Freq PRN Reason Stop Dose Admin Acetaminophen 650 mg 04/11/19 11:27 Tylenol PO Q4H PRN Pain MILD(1-3)/Fever >100.5/ARANDA Dextrose 0 ml 04/11/19 12:27 04/12/19 04:27 D50w (25gm) Syringe IV 25 ml Q30MIN PRN Administration Hypoglycemia Protocol Famotidine 20 mg 04/11/19 22:00 04/12/19 10:55 Pepcid PO 20 mg BID BRIANNA Administration Gabapentin 900 mg 04/11/19 14:00 04/12/19 06:40 Gabapentin PO 900 mg Q8HR BRIANNA Administration Gentamicin Sulfate 2 drops 04/11/19 12:00 04/12/19 11:14 Gentamicin 0.3% Ophth Soln OU 2 drops Q4H BRIANNA Administration Hydralazine HCl 10 mg 04/11/19 12:58 04/12/19 07:09 Apresoline IV 10 mg Q4HR PRN Administration BP >160/100 Sodium Chloride 1,000 mls @ 150 mls/hr 04/12/19 05:00 04/12/19 11:14 Nacl 0.45% 1000 Ml IV 150 mls/hr DIRECT BRIANNA Administration Insulin Human Lispro 0 unit 04/11/19 12:00 04/12/19 12:19 Humalog SUB-Q Not Given Q6HR [facility] Protocol Insulin Human Regular 5 units 04/11/19 13:00 04/12/19 13:01 Humulin R SUB-Q Not Given DAILY@1200 BRIANNA Ketorolac Tromethamine 15 mg 04/11/19 12:58 04/11/19 18:05 Toradol IV 04/16/19 12:57 15 mg Q6H PRN Administration Pain, Mild (1-3) Metoclopramide HCl 10 mg 04/11/19 11:27 04/12/19 07:44 Reglan IV 10 mg Q6H PRN Administration Nausea And Vomiting Ondansetron HCl 4 mg 04/11/19 11:27 04/12/19 10:55 Zofran IV 4 mg Q4H PRN Administration Nausea And Vomiting Promethazine HCl 50 mg 04/11/19 11:22 04/12/19 06:40 Phenergan CA 50 mg Q6H PRN Administration Nausea Nutrition/Malnutrition Assess - Dietary Evaluation Nutrition/Malnutrition Findings: Nutrition Notes Start: 04/12/19 10:21 Freq: Status: Active Protocol: Document 04/12/19 10:21 LP (Rec: 04/12/19 10:22 LP [id number]) Nutrition Notes Need for Assessment generated from: MD Order Initial or Follow up Assessment Current Diagnosis Diabetes Other Pertinent Diagnosis Gastroparesis Current Diet NPO Labs/Tests BG 47 Pertinent Medications D50 Height 5 ft 6 in Weight 55 kg Frederic Body Weight (kg) 59.09 BMI 19.5 Subjective/Other Information Consult for diet education. Pt sleeping and did not wake to name. Nutrition Intervention Follow-Up By: 04/13/19 Additional Comments Follow for diet education needs
--- NOTE | 2019-04-12 13:08 | Consultation ---
History of Present Illness Consult date: 04/12/19 Requesting physician: TIFFANIE CHAVIRA Reason for consult: other (DKA) History of present illness: PULMONARY/CCM CONSULT NOTE (Full dictation # [id number]) Please see dictated notes for full details Medications and Allergies Allergies Allergy/AdvReac Type Severity Reaction Status Date / Time clindamycin Allergy Swelling Verified 04/11/19 07:17 Home Medications Medication Instructions Recorded Confirmed Last Taken Type Insulin NPH Hum/Reg Insulin Hm 1 each SQ 4XD 05/31/13 04/12/19 04/10/19 History [Novolin 70-30 100 Unit/ml Vial] Gentamicin 0.3% Ophth Soln 2 drops OP Q4H 5 Days bottle 10/27/14 04/12/19 Unknown Rx Amoxicillin [Amoxicillin TAB] 875 mg PO BID #20 tablet 03/13/17 04/12/19 Unknown Rx Gabapentin [Neurontin] 900 mg PO Q8HR #180 capsule 11/26/17 04/12/19 Unknown Rx Metoclopramide [Reglan] 10 mg PO BID #12 tab 12/12/17 04/12/19 Unknown Rx Famotidine [Pepcid] 20 mg PO BID #60 tablet 12/15/17 04/12/19 Unknown Rx Promethazine [Phenergan SUPPOS] 50 mg PA Q6H PRN #20 supp.rect 12/15/17 04/12/19 Unknown Rx Active Meds: Active Medications Acetaminophen (Tylenol) 650 mg PO Q4H PRN PRN Reason: Pain MILD(1-3)/Fever >100.5/ARANDA Dextrose (D50w (25gm) Syringe) 0 ml IV Q30MIN PRN; Protocol PRN Reason: Hypoglycemia Last Admin: 04/12/19 04:27 Dose: 25 ml Documented by: Famotidine (Pepcid) 20 mg PO BID BRIANNA Last Admin: 04/12/19 10:55 Dose: 20 mg Documented by: Gabapentin (Gabapentin) 900 mg PO Q8HR BRIANNA Last Admin: 04/12/19 06:40 Dose: 900 mg Documented by: Gentamicin Sulfate (Gentamicin 0.3% Ophth Soln) 2 drops OU Q4H BRIANNA Last Admin: 04/12/19 11:14 Dose: 2 drops Documented by: Hydralazine HCl (Apresoline) 10 mg IV Q4HR PRN PRN Reason: BP >160/100 Last Admin: 04/12/19 07:09 Dose: 10 mg Documented by: Sodium Chloride (Nacl 0.45% 1000 Ml) 1,000 mls @ 150 mls/hr IV DIRECT BRIANNA Last Admin: 04/12/19 11:14 Dose: 150 mls/hr Documented by: Insulin Human Lispro (Humalog) 0 unit SUB-Q Q6HR BRIANNA; Protocol Last Admin: 04/12/19 12:19 Dose: Not Given Documented by: Insulin Human Regular (Humulin R) 5 units SUB-Q DAILY@1200 BRIANNA Last Admin: 04/12/19 13:01 Dose: Not Given Documented by: Ketorolac Tromethamine (Toradol) 15 mg IV Q6H PRN PRN Reason: Pain, Mild (1-3) Stop: 04/16/19 12:57 Last Admin: 04/11/19 18:05 Dose: 15 mg Documented by: Lorazepam (Ativan) 1 mg IV Q4H PRN PRN Reason: intractable nausea Metoclopramide HCl (Reglan) 10 mg IV Q6H PRN PRN Reason: Nausea And Vomiting Last Admin: 04/12/19 07:44 Dose: 10 mg Documented by: Ondansetron HCl (Zofran) 4 mg IV Q4H PRN PRN Reason: Nausea And Vomiting Last Admin: 04/12/19 10:55 Dose: 4 mg Documented by: Promethazine HCl (Phenergan) 50 mg PA Q6H PRN PRN Reason: Nausea Last Admin: 04/12/19 06:40 Dose: 50 mg Documented by: Physical Examination Vital signs: Vital Signs Temp Pulse Resp BP Pulse Ox 98.2 F 103 H 18 144/110 98 04/11/19 07:19 04/11/19 07:19 04/11/19 07:19 04/11/19 07:19 04/11/19 07:19 Results - Laboratory Findings CBC and BMP: 04/12/19 04:00 04/13/19 09:33 Abnormal lab findings: Abnormal Labs 04/11/19 04/11/19 04/11/19 08:17 08:21 08:24 WBC Hgb MCH 27 L RDW 19.2 H Lymph # 1.1 L Seg Neutrophils % 79.8 H Seg Neuts % (Manual) Monocytes % (Manual) Seg Neutrophils # Man Monocytes # (Manual) Chloride 96.8 L Carbon Dioxide 19 L Creatinine 0.6 L Glucose 480 H POC Glucose 354 H Hemoglobin A1c Calcium Lipase 8 L 04/11/19 04/11/19 04/11/19 10:20 11:24 11:37 WBC Hgb MCH RDW Lymph # Seg Neutrophils % Seg Neuts % (Manual) Monocytes % (Manual) Seg Neutrophils # Man Monocytes # (Manual) Chloride Carbon Dioxide 16 L Creatinine 0.6 L Glucose 354 H POC Glucose 371 H Hemoglobin A1c 10.4 H Calcium Lipase 04/11/19 04/11/19 04/11/19 11:43 13:16 14:30 WBC Hgb MCH RDW Lymph # Seg Neutrophils % Seg Neuts % (Manual) Monocytes % (Manual) Seg Neutrophils # Man Monocytes # (Manual) Chloride Carbon Dioxide 14 L 16 L Creatinine 0.6 L Glucose 347 H 346 H POC Glucose 351 H Hemoglobin A1c Calcium Lipase 04/11/19 04/11/19 04/11/19 15:11 16:01 17:23 WBC Hgb MCH RDW Lymph # Seg Neutrophils % Seg Neuts % (Manual) Monocytes % (Manual) Seg Neutrophils # Man Monocytes # (Manual) Chloride Carbon Dioxide Creatinine Glucose POC Glucose 347 H 327 H 265 H Hemoglobin A1c Calcium Lipase 04/11/19 04/11/19 04/12/19 18:42 20:58 00:08 WBC Hgb MCH RDW Lymph # Seg Neutrophils % Seg Neuts % (Manual) Monocytes % (Manual) Seg Neutrophils # Man Monocytes # (Manual) Chloride Carbon Dioxide 16 L Creatinine 0.6 L Glucose 177 H POC Glucose 196 H 107 H Hemoglobin A1c Calcium Lipase 04/12/19 04/12/19 04/12/19 04:00 04:00 04:00 WBC 15.0 H Hgb 10.0 L MCH 27 L RDW 19.9 H Lymph # Seg Neutrophils % Seg Neuts % (Manual) 74.0 H Monocytes % (Manual) 8.0 H Seg Neutrophils # Man 11.1 H Monocytes # (Manual) 1.2 H Chloride 108.0 H Carbon Dioxide 19 L Creatinine 0.6 L Glucose 47 L POC Glucose < 40 L Hemoglobin A1c Calcium 8.3 L Lipase 04/12/19 04/12/19 04/12/19 04:03 04:35 05:04 WBC Hgb MCH RDW Lymph # Seg Neutrophils % Seg Neuts % (Manual) Monocytes % (Manual) Seg Neutrophils # Man Monocytes # (Manual) Chloride Carbon Dioxide Creatinine Glucose POC Glucose < 40 L 40 L 111 H Hemoglobin A1c Calcium Lipase 04/12/19 04/12/19 04/12/19 07:42 12:12 12:28 WBC Hgb MCH RDW Lymph # Seg Neutrophils % Seg Neuts % (Manual) Monocytes % (Manual) Seg Neutrophils # Man Monocytes # (Manual) Chloride Carbon Dioxide 17 L Creatinine 0.6 L Glucose 171 H POC Glucose 118 H 138 H Hemoglobin A1c Calcium 8.1 L Lipase
[2019-04-12] MEDS ORDERED: INSULIN NPH/REGULAR 70/30 INJ SUB-Q ONE (16:27)
[2019-04-13] MEDS: INSULIN LISPRO 100 UNIT/ML SUB-Q SCH ×4 (01:42→19:40)
[2019-04-13] MEDS: GENTAMICIN 0.3% OPHTH SOLN 5 ML OU SCH ×6 (01:42→21:14)
[2019-04-13] MEDS: GABAPENTIN 300 MG CAP PO SCH ×3 (06:01→21:12)
[2019-04-13] MEDS: SODIUM CHLORIDE 0.45% 1000 ML 1,000 ML IV SCH ×2 (06:02→12:50)
[2019-04-13] MEDS: ONDANSETRON 4 MG/2 ML INJ IV PRN ×2 (06:03→12:49)
[2019-04-13 10:08] LABS: BUN/Creatinine Ratio 14; Blood Urea Nitrogen 7 mg/dL (7-17); Calcium 8.4 mg/dL (8.4-10.2); Hemolysis Index 11
[2019-04-13] MEDS: FAMOTIDINE 20 MG TAB PO SCH ×2 (12:54→21:12)
[2019-04-13] MEDS: INSULIN REGULAR, HUMAN 100 UNITS/1 ML SUB-Q SCH (13:07)
--- NOTE | 2019-04-13 13:42 | Progress Note ---
Assessment and Plan Diabetes mellitus, juvenile onset, poorly controlled. Diabetic gastroparesis. Intractable nausea and vomiting HTN - continue glycemic control with SSI for target BG < 180 mg/dl - prn anti-emetics - prn analgesics per pain score while avoiding opiates if possible re: gastroparesis - aspiration precautions - continue antihypertensives and other chronic disease med's - substance abuse counseling done at bedside - continue other care per attendin ... re-evaluate in am & prn Subjective Date of service: 04/13/19 Interval history: Patient is seen today for: Diabetes mellitus, juvenile onset, poorly controlled; Diabetic gastroparesis; Intractable nausea and vomiting; HTN Seen and examined at bedside; 24hour events reviewed; nursing and respiratory care staff consulted; no adverse overnight events reported to me; resting in bed; still with N&V; still with some abdominal pain; denies chest pains or palpitations; no cough / expectoration Objective Vital Signs - 12hr 04/13/19 04:29 Temperature 98.2 F Pulse Rate 111 H Respiratory 20 Rate Blood Pressure 147/99 O2 Sat by Pulse 100 Oximetry Constitutional: appears uncomfortable Eyes: non-icteric ENT: oropharynx moist Neck: supple, no lymphadenopathy Effort: mildly labored Ascultation: Bilateral: clear Percussion: Bilateral: not dull Cardiovascular: regular rate and rhythm Gastrointestinal: hypoactive bowel sounds, tender (mildly diffusely), non- distended Integumentary: normal Extremities: no cyanosis, no edema, pulses normal, no ischemia or petechiae Neurologic: normal mental status, non-focal exam, pupils equal and round, CN II- XII normal Psychiatric: depressed CBC and BMP: 04/12/19 04:00 04/15/19 07:47 Abnormal lab findings: Abnormal Labs 04/11/19 04/11/19 04/11/19 08:17 08:21 08:24 WBC Hgb MCH 27 L RDW 19.2 H Lymph # 1.1 L Seg Neutrophils % 79.8 H Seg Neuts % (Manual) Monocytes % (Manual) Seg Neutrophils # Man Monocytes # (Manual) Sodium Chloride 96.8 L Carbon Dioxide 19 L Creatinine 0.6 L Glucose 480 H POC Glucose 354 H Hemoglobin A1c Calcium Lipase 8 L 04/11/19 04/11/19 04/11/19 10:20 11:24 11:37 WBC Hgb MCH RDW Lymph # Seg Neutrophils % Seg Neuts % (Manual) Monocytes % (Manual) Seg Neutrophils # Man Monocytes # (Manual) Sodium Chloride Carbon Dioxide 16 L Creatinine 0.6 L Glucose 354 H POC Glucose 371 H Hemoglobin A1c 10.4 H Calcium Lipase 04/11/19 04/11/19 04/11/19 11:43 13:16 14:30 WBC Hgb MCH RDW Lymph # Seg Neutrophils % Seg Neuts % (Manual) Monocytes % (Manual) Seg Neutrophils # Man Monocytes # (Manual) Sodium Chloride Carbon Dioxide 14 L 16 L Creatinine 0.6 L Glucose 347 H 346 H POC Glucose 351 H Hemoglobin A1c Calcium Lipase 04/11/19 04/11/19 04/11/19 15:11 16:01 17:23 WBC Hgb MCH RDW Lymph # Seg Neutrophils % Seg Neuts % (Manual) Monocytes % (Manual) Seg Neutrophils # Man Monocytes # (Manual) Sodium Chloride Carbon Dioxide Creatinine Glucose POC Glucose 347 H 327 H 265 H Hemoglobin A1c Calcium Lipase 04/11/19 04/11/19 04/12/19 18:42 20:58 00:08 WBC Hgb MCH RDW Lymph # Seg Neutrophils % Seg Neuts % (Manual) Monocytes % (Manual) Seg Neutrophils # Man Monocytes # (Manual) Sodium Chloride Carbon Dioxide 16 L Creatinine 0.6 L Glucose 177 H POC Glucose 196 H 107 H Hemoglobin A1c Calcium Lipase 04/12/19 04/12/19 04/12/19 04:00 04:00 04:00 WBC 15.0 H Hgb 10.0 L MCH 27 L RDW 19.9 H Lymph # Seg Neutrophils % Seg Neuts % (Manual) 74.0 H Monocytes % (Manual) 8.0 H Seg Neutrophils # Man 11.1 H Monocytes # (Manual) 1.2 H Sodium Chloride 108.0 H Carbon Dioxide 19 L Creatinine 0.6 L Glucose 47 L POC Glucose < 40 L Hemoglobin A1c Calcium 8.3 L Lipase 04/12/19 04/12/19 04/12/19 04:03 04:35 05:04 WBC Hgb MCH RDW Lymph # Seg Neutrophils % Seg Neuts % (Manual) Monocytes % (Manual) Seg Neutrophils # Man Monocytes # (Manual) Sodium Chloride Carbon Dioxide Creatinine Glucose POC Glucose < 40 L 40 L 111 H Hemoglobin A1c Calcium Lipase 04/12/19 04/12/19 04/12/19 07:42 12:12 12:28 WBC Hgb MCH RDW Lymph # Seg Neutrophils % Seg Neuts % (Manual) Monocytes % (Manual) Seg Neutrophils # Man Monocytes # (Manual) Sodium Chloride Carbon Dioxide 17 L Creatinine 0.6 L Glucose 171 H POC Glucose 118 H 138 H Hemoglobin A1c Calcium 8.1 L Lipase 04/12/19 04/13/19 04/13/19 16:53 05:47 09:33 WBC Hgb MCH RDW Lymph # Seg Neutrophils % Seg Neuts % (Manual) Monocytes % (Manual) Seg Neutrophils # Man Monocytes # (Manual) Sodium 133 L Chloride Carbon Dioxide 18 L Creatinine 0.5 L Glucose 163 H POC Glucose 157 H 136 H Hemoglobin A1c Calcium Lipase 04/13/19 11:50 WBC Hgb MCH RDW Lymph # Seg Neutrophils % Seg Neuts % (Manual) Monocytes % (Manual) Seg Neutrophils # Man Monocytes # (Manual) Sodium Chloride Carbon Dioxide Creatinine Glucose POC Glucose 172 H Hemoglobin A1c Calcium Lipase Allied health notes reviewed: nursing
--- NOTE | 2019-04-13 14:28 | Consultation ---
PULMONARY CRITICAL CARE CONSULT NOTE CONSULTING PHYSICIAN: Dr. Arellano, Emergency Room doctor. REASON FOR CONSULTATION: Diabetic ketoacidosis. CHIEF COMPLAINT AND HISTORY OF PRESENT ILLNESS: The patient is a 19-year-old -[place] female with past medical history significant for diabetes, gastroparesis and chronic pain, who came into the Emergency Room complaining of nausea and vomiting. Essentially, she was evaluated in the Emergency Room, stabilized with IV fluids were going. Ultimately, she was diagnosed with diabetic ketoacidosis, started on IV insulin therapy and ICU admission was requested for management of diabetic ketoacidosis. When I stopped by to see her, she was resting in bed, still having trouble with gastroparesis, but doing better weaning off the IV insulin therapy. Denied chest pains. Denied fevers or chills. She denies any open boils or sores on her body. Denied any sick contacts. When asked about tobacco use or abuse whatsoever, she denies any history of tobacco use, whatsoever. This really is as much of the history of presentation as I have. PAST MEDICAL HISTORY: Diabetic ketoacidosis with gastroparesis. PAST SURGICAL HISTORY: Denies. MEDICATIONS: She was on at the time I stopped by to see her, according to medication physician record included the following: Tylenol 650 mg p.o. q. 4 hours p.r.n. mild pain or fevers, Pepcid 20 mg p.o. b.i.d., Neurontin 900 mg p.o. q. 8 hours, gentamicin sulfate eyedrops 0.3% two drops q. 4 hours to affected eye p.r.n., hydralazine 10 mg IV q. 4 hours p.r.n. elevated blood pressure greater than 160/100, insulin via sliding scale p.r.n., Toradol 50 mg IV q. 6 hours p.r.n. for pain, Ativan 1 mg IV q. 4 hours p.r.n., Reglan 10 mg IV q. 6 hours p.r.n. nausea and vomiting, Zofran 4 mg IV q. 4 hours p.r.n. nausea and vomiting and Phenergan 50 mg per rectum q. 6 hours p.r.n. nausea. ALLERGIES: CLINDAMYCIN. Nature of this allergy is unknown. DIET: Well-built lady. Denies acute weight loss or gain in the preceding few weeks to months. FAMILY AND SOCIAL HISTORY: Apparently lives in the community. Denies alcohol, tobacco, or illicit drug use or abuse. Family history is otherwise unknown. REVIEW OF SYSTEMS: I should mention she is a poor historian, difficult to obtain, mostly because of her discomfort, but denied chest pains. Denied palpitations since she has been here, no gross hematochezia or melena. No gross hematuria. She has had the nausea and vomiting. No hematemesis. She denies palpitations. No witnessed seizures. Complete 13-system review of systems obtained as best as she will cooperate with me. Pertinent positives and/or negatives as in body of history above, otherwise noncontributory. PHYSICAL EXAMINATION: VITAL SIGNS: On examination at presentation in the Emergency Room, she was afebrile 98.2 degrees Fahrenheit, pulse of 103, respiratory rate of 18, blood pressure 144/110, O2 sats were 98%, inspired oxygen concentration at that time was not recorded. When I stopped by to see her, O2% sats were 98% and this was on room air. GENERAL: She is a young -[place] female, normocephalic, atraumatic, resting in bed with mildly increased respiratory effort, mostly because of her discomfort at rest. HEAD, EYES, EARS, NOSE AND THROAT: She is anicteric. No conjunctival erythema. Oropharynx was moist. Mallampati #2 oropharynx. No gross jugular venous distention, no thyromegaly. Grossly, no palpable lymph nodes in the supraclavicular or submandibular lymph node chains. LUNGS: Auscultation of both lung moreno unremarkable. Lungs are clear bilaterally with good bilateral air movement. HEART: Heart sounds 1 and 2 are heard. They were regular in rate and rhythm at the time of my evaluation without overt rubs or murmurs. ABDOMEN: Soft, protuberant, but not distended. She is mildly tender to palpation, really does not want you to touch her abdomen. I was unable to evaluate for hepatosplenomegaly. EXTREMITIES: Without overt digital clubbing, no cyanosis, no pedal edema. Pedal pulses are 2+ bilaterally. NEUROLOGIC: Pupils are equal, round, about 3 mm, reactive to light. Extraocular muscle movements are intact. She moves all 4 extremities spontaneously. SKIN: Normal turgor in the areas examined without overt cellulitis or rash. PSYCHIATRIC: Her mood was depressed. Affect was anxious. LABORATORY DATA: From my review are as follows: Admission white cell count 6700, hemoglobin 10.4, hematocrit 31.7, platelet count 243. No manual differential. Venous blood gas at presentation was 7.41. Serum sodium was 131, potassium 4.1, chloride 103, bicarbonate 16, BUN was 13, creatinine 0.6, glucose was 354. Liver function test within normal limits. Lipase was within normal limits. Urinalysis was negative for nitrites and leukocyte esterase unremarkable. Urine drug screen was presumptive positive for THC. No blood cultures. Chest x-ray has been reviewed, is a normal chest x-ray for age. A CT scan was also done of her head, no acute intracranial abnormality. ASSESSMENT: 1. Diabetes mellitus, juvenile onset, poorly controlled. 2. Diabetic gastroparesis. 3. Intractable nausea and vomiting. PLAN: We will continue sliding scale insulin and I will defer to the attending physician for long-acting insulin therapy. No indication for IV insulin therapy at this point. Continue management of her pain with p.r.n. Toradol. I will go ahead and discontinue the Ativan. She is pretty drowsy at the time of my evaluation and really Ativan I do not know what that is planning in prevention of nausea and vomiting. She is appropriately on GI prophylaxis. I have counseled continued tobacco abstinence. She should be placed on DVT prophylaxis. Flu and pneumonia vaccination will be addressed per protocol. Thank you very much for the consult. We will follow along and make further recommendations as picture progresses/becomes clearer, but can proceed to the medical floor at this time. JOB# [id number] PADDY/MILES DANIELSON
--- NOTE | 2019-04-13 14:55 | Progress Note ---
Assessment and Plan Assessment and plan: 19-year-old woman with type 1 diabetes who presents with hyperglycemia. Patient also complaining of intractable nausea and vomiting due to gastroparesis, she then became less responsive. Type 1 insulin-dependent diabetes with persistent hyperglycemia Off insulin drip, now subcutaneous insulins, Diabetic gastroparesis Antiemetics, trial of clear liquid diet, patient failed and vomited, she was put back n.p.o. Diabetic neuropathy Continue gabapentin Dehydration; IV fluids Elevated blood pressure Does not have a history of hypertension, hydralazine as needed monitor blood pressure curve Marijuana abuse Preventative health counseling performed for 17 minutes DVT prophylaxis; early ambulation History Interval history: Review of systems Constitutional: No fevers, no malaise, no joint pains CVS: No chest pain, no orthopnea, no dyspnea on exertion, no pedal edema GI: Continues to complain of nausea, Respiratory: no wheezing, no coughing Hospitalist Physical - Physical exam Narrative exam: General.: Mild distress HEENT: Moist mucous membranes, extraocular muscles intact, no lymphadenopathy Neck: supple Cardiac: S1-S2 heard Lungs: clear to auscultation bilaterally Abdomen: soft , nontender, nondistended, bowel sounds positive Extremities: no edema clubbing or cyanosis Skin: no rash or lesions Neurologic: no gross focal deficits Psych: calm, and cooperative - Constitutional Vitals: Temp Pulse Resp BP Pulse Ox 98.9 F 112 H 20 142/96 99 04/13/19 11:41 04/13/19 11:41 04/13/19 11:41 04/13/19 11:41 04/13/19 11:41 Results - Labs CBC & Chem 7: 04/12/19 04:00 04/14/19 08:39 Labs: Laboratory Last Values WBC 15.0 K/mm3 (4.5-11.0) H 04/12/19 04:00 RBC 3.68 M/mm3 (3.65-5.03) 04/12/19 04:00 Hgb 10.0 gm/dl (10.1-14.3) L 04/12/19 04:00 Hct 31.2 % (30.3-42.9) 04/12/19 04:00 MCV 85 fl (79-97) 04/12/19 04:00 MCH 27 pg (28-32) L 04/12/19 04:00 MCHC 32 % (30-34) 04/12/19 04:00 RDW 19.9 % (13.2-15.2) H 04/12/19 04:00 Plt Count 272 K/mm3 (140-440) 04/12/19 04:00 Lymph % (Auto) 16.8 % (13.4-35.0) 04/11/19 08:21 Winn % (Auto) 2.8 % (0.0-7.3) 04/11/19 08:21 Eos % (Auto) 0.2 % (0.0-4.3) 04/11/19 08:21 Baso % (Auto) 0.4 % (0.0-1.8) 04/11/19 08:21 Lymph # 1.1 K/mm3 (1.2-5.4) L 04/11/19 08:21 Winn # 0.2 K/mm3 (0.0-0.8) 04/11/19 08: Eos # 0.0 K/mm3 (0.0-0.4) 04/11/19 08:21 Baso # 0.0 K/mm3 (0.0-0.1) 04/11/19 08:21 Add Manual Diff Complete 04/12/19 04:00 Total Counted 100 04/12/19 04:00 Seg Neutrophils % 79.8 % (40.0-70.0) H 04/11/19 08:21 Seg Neuts % (Manual) 74.0 % (40.0-70.0) H 04/12/19 04:00 Band Neutrophils % 0 % 04/12/19 04:00 Lymphocytes % (Manual) 18.0 % (13.4-35.0) 04/12/19 04:00 Reactive Lymphs % (Man) 0 % 04/12/19 04:00 Monocytes % (Manual) 8.0 % (0.0-7.3) H 04/12/19 04:00 Eosinophils % (Manual) 0 % (0.0-4.3) 04/12/19 04:00 Basophils % (Manual) 0 % (0.0-1.8) 04/12/19 04:00 Metamyelocytes % 0 % 04/12/19 04:00 Myelocytes % 0 % 04/12/19 04:00 Promyelocytes % 0 % 04/12/19 04:00 Blast Cells % 0 % 04/12/19 04:00 Nucleated RBC % Not Reportable 04/12/19 04:00 Seg Neutrophils # 5.3 K/mm3 (1.8-7.7) 04/11/19 08:21 Seg Neutrophils # Man 11.1 K/mm3 (1.8-7.7) H 04/12/19 04:00 Band Neutrophils # 0.0 K/mm3 04/12/19 04:00 Lymphocytes # (Manual) 2.7 K/mm3 (1.2-5.4) 04/12/19 04:00 Abs React Lymphs (Man) 0.0 K/mm3 04/12/19 04:00 Monocytes # (Manual) 1.2 K/mm3 (0.0-0.8) H 04/12/19 04:00 Eosinophils # (Manual) 0.0 K/mm3 (0.0-0.4) 04/12/19 04:00 Basophils # (Manual) 0.0 K/mm3 (0.0-0.1) 04/12/19 04:00 Metamyelocytes # 0.0 K/mm3 04/12/19 04:00 Myelocytes # 0.0 K/mm3 04/12/19 04:00 Promyelocytes # 0.0 K/mm3 04/12/19 04:00 Blast Cells # 0.0 K/mm3 04/12/19 04:00 WBC Morphology Not Reportable 04/12/19 04:00 Hypersegmented Neuts Not Reportable 04/12/19 04:00 Hyposegmented Neuts Not Reportable 04/12/19 04:00 Hypogranular Neuts Not Reportable 04/12/19 04:00 Smudge Cells Not Reportable 04/12/19 04:00 Toxic Granulation Not Reportable 04/12/19 04:00 Toxic Vacuolation Not Reportable 04/12/19 04:00 Dohle Bodies Not Reportable 04/12/19 04:00 Pelger-Huet Anomaly Not Reportable 04/12/19 04:00 Navi Rods Not Reportable 04/12/19 04:00 Platelet Estimate Consistent w auto 04/12/19 04:00 Clumped Platelets Not Reportable 04/12/19 04:00 Plt Clumps, EDTA Not Reportable 04/12/19 04:00 Large Platelets Not Reportable 04/12/19 04:00 Giant Platelets Not Reportable 04/12/19 04:00 Platelet Satelliting Not Reportable 04/12/19 04:00 Plt Morphology Comment Not Reportable 04/12/19 04:00 RBC Morphology Not Reportable 04/12/19 04:00 Dimorphic RBCs Not Reportable 04/12/19 04:00 Polychromasia Not Reportable 04/12/19 04:00 Hypochromasia Not Reportable 04/12/19 04:00 Poikilocytosis Not Reportable 04/12/19 04:00 Anisocytosis Not Reportable 04/12/19 04:00 Microcytosis Not Reportable 04/12/19 04:00 Macrocytosis Not Reportable 04/12/19 04:00 Spherocytes Not Reportable 04/12/19 04:00 Pappenheimer Bodies Not Reportable 04/12/19 04:00 Sickle Cells Not Reportable 04/12/19 04:00 Target Cells Not Reportable 04/12/19 04:00 Tear Drop Cells Not Reportable 04/12/19 04:00 Ovalocytes Few 04/12/19 04:00 Helmet Cells Not Reportable 04/12/19 04:00 [place] Bodies Not Reportable 04/12/19 04:00 [place] Rings Not Reportable 04/12/19 04:00 Alanna Cells Not Reportable 04/12/19 04:00 Bite Cells Not Reportable 04/12/19 04:00 Crenated Cell Not Reportable 04/12/19 04:00 Elliptocytes Not Reportable 04/12/19 04:00 Acanthocytes (Spur) Not Reportable 04/12/19 04:00 Rouleaux Not Reportable 04/12/19 04:00 Hemoglobin C Crystals Not Reportable 04/12/19 04:00 Schistocytes Rare 04/12/19 04:00 Malaria parasites Not Reportable 04/12/19 04:00 Evaristo Bodies Not Reportable 04/12/19 04:00 Hem Pathologist Commnt No 04/12/19 04:00 VBG pH 7.412 (7.320-7.420) 04/11/19 08:19 Sodium 133 mmol/L (137-145) L 04/13/19 09:33 Potassium 3.6 mmol/L (3.6-5.0) 04/13/19 09:33 Chloride 99.3 mmol/L (98-107) 04/13/19 09:33 Carbon Dioxide 18 mmol/L (22-30) L 04/13/19 09:33 Anion Gap 19 mmol/L 04/13/19 09:33 BUN 7 mg/dL (7-17) 04/13/19 09:33 Creatinine 0.5 mg/dL (0.7-1.2) L 04/13/19 09:33 Estimated GFR > 60 ml/min 04/13/19 09:33 BUN/Creatinine Ratio 14 % 04/13/19 09:33 Glucose 163 mg/dL (65-100) H 04/13/19 09:33 POC Glucose 172 (70-105) H 04/13/19 11:50 Hemoglobin A1c 10.4 % (4-6) H 04/11/19 11:37 Ketones Quantitative Small (Negative) 04/11/19 08:19 Lactic Acid 1.10 mmol/L (0.7-2.0) 04/11/19 08:19 Calcium 8.4 mg/dL (8.4-10.2) 04/13/19 09:33 Magnesium 2.10 mg/dL (1.7-2.3) 04/11/19 08:17 Total Bilirubin 0.40 mg/dL (0.1-1.2) 04/11/19 08:17 Direct Bilirubin < 0.2 mg/dL (0-0.2) 04/11/19 08:17 Indirect Bilirubin 0.2 mg/dL 04/11/19 08:17 AST 16 units/L (5-40) 04/11/19 08:17 ALT 12 units/L (7-56) 04/11/19 08:17 Alkaline Phosphatase 83 units/L (35-129) 04/11/19 08:17 Total Creatine Kinase 130 units/L (30-135) 04/11/19 08:17 CK-MB (CK-2) 1.4 ng/mL (0.0-4.0) 04/11/19 08:17 CK-MB (CK-2) Rel Index 1.0 (0-4) 04/11/19 08:17 Troponin T < 0.010 ng/mL (0.00-0.029) 04/11/19 08:17 Total Protein 8.1 g/dL (6.3-8.2) 04/11/19 08:17 Albumin 4.4 g/dL (3.9-5) 04/11/19 08:17 Albumin/Globulin Ratio 1.2 % 04/11/19 08:17 Lipase 8 units/L (13-60) L 04/11/19 08:17 HCG, Qual Negative (Negative) 04/11/19 08:18 Urine Color Straw (Yellow) 04/11/19 Unknown Urine Turbidity Clear (Clear) 04/11/19 Unknown Urine pH 6.0 (5.0-7.0) 04/11/19 Unknown Ur Specific [place] 1.030 (1.003-1.030) 04/11/19 Unknown Urine Protein 30 mg/dl mg/dL (Negative) 04/11/19 Unknown Urine Glucose (UA) >=500 mg/dL (Negative) 04/11/19 Unknown Urine Ketones 80 mg/dL (Negative) 04/11/19 Unknown Urine Blood Sm (Negative) 04/11/19 Unknown Urine Nitrite Neg (Negative) 04/11/19 Unknown Urine Bilirubin Neg (Negative) 04/11/19 Unknown Urine Urobilinogen < 2.0 mg/dL (<2.0) 04/11/19 Unknown Ur Leukocyte Esterase Neg (Negative) 04/11/19 Unknown Urine WBC (Auto) < 1.0 /HPF (0.0-6.0) 04/11/19 Unknown Urine RBC (Auto) 4.0 /HPF (0.0-6.0) 04/11/19 Unknown U Epithel Cells (Auto) < 1.0 /HPF (0-13.0) 04/11/19 Unknown Urine Mucus Few /HPF 04/11/19 Unknown Urine Opiates Screen Presumptive negative 04/11/19 Unknown Urine Methadone Screen Presumptive negative 04/11/19 Unknown Ur Barbiturates Screen Presumptive negative 04/11/19 Unknown Ur Phencyclidine Scrn Presumptive negative 04/11/19 Unknown Ur Amphetamines Screen Presumptive negative 04/11/19 Unknown U Benzodiazepines Scrn Presumptive negative 04/11/19 Unknown Urine Cocaine Screen Presumptive negative 04/11/19 Unknown U Marijuana (THC) Screen Presumptive positive 04/11/19 Unknown Drugs of Abuse Note Disclamer 04/11/19 Unknown Active Medications - Current Medications Current Medications: Generic Name Dose Route Start Last Admin Trade Name Freq PRN Reason Stop Dose Admin Acetaminophen 650 mg 04/11/19 11:27 Tylenol PO Q4H PRN Pain MILD(1-3)/Fever >100.5/ARANDA Dextrose 0 ml 04/11/19 12:27 04/12/19 04:27 D50w (25gm) Syringe IV 25 ml Q30MIN PRN Administration Hypoglycemia Protocol Famotidine 20 mg 04/11/19 22:00 04/13/19 12:54 Pepcid PO Not Given BID BRIANNA Gabapentin 900 mg 04/11/19 14:00 04/13/19 06:01 Gabapentin PO 900 mg Q8HR BRIANNA Administration Gentamicin Sulfate 2 drops 04/11/19 12:00 04/13/19 12:54 Gentamicin 0.3% Ophth Soln OU Not Given Q4H [facility] Hydralazine HCl 10 mg 04/11/19 12:58 04/12/19 13:50 Apresoline IV 10 mg Q4HR PRN Administration BP >160/100 Sodium Chloride 1,000 mls @ 150 mls/hr 04/12/19 05:00 04/13/19 12:50 Nacl 0.45% 1000 Ml IV 150 mls/hr DIRECT [facility] Administration Insulin Human Lispro 0 unit 04/11/19 12:00 04/13/19 13:07 Humalog SUB-Q Not Given Q6HR [facility] Protocol Insulin Human Regular 5 units 04/11/19 13:00 04/13/19 13:07 Humulin R SUB-Q Not Given DAILY@1200 [facility] Ketorolac Tromethamine 15 mg 04/11/19 12:58 04/11/19 18:05 Toradol IV 04/16/19 12:57 15 mg Q6H PRN Administration Pain, Mild (1-3) Metoclopramide HCl 10 mg 04/11/19 11:27 04/12/19 07:44 Reglan IV 10 mg Q6H PRN Administration Nausea And Vomiting Ondansetron HCl 4 mg 04/11/19 11:27 04/13/19 12:49 Zofran IV 4 mg Q4H PRN Administration Nausea And Vomiting Promethazine HCl 50 mg 04/11/19 11:22 04/12/19 17:29 Phenergan MN 50 mg Q6H PRN Administration Nausea Nutrition/Malnutrition Assess - Dietary Evaluation Nutrition/Malnutrition Findings: Nutrition Notes Start: 04/12/19 10:21 Freq: Status: Active Protocol: Document 04/13/19 08:57 LP (Rec: 04/13/19 08:58 LP [id number]) Nutrition Notes Initial or Follow up Brief Note Subjective/Other Information Pt remains sleep with covers over head and not answering to name. Nutrition Intervention Follow-Up By: 04/14/19 Additional Comments Follow for diet education needs
--- NOTE | 2019-04-13 16:13 | XRay Report ---
ABDOMEN 1 VIEW(S) INDICATION: n/v COMPARISON: None available. FINDINGS: Bowel gas pattern: Within normal limits. No dilated loops of large or small bowel. Free air: None. Calcified gallstones: None seen. Calcified urinary tract calculi: None seen. Additional Findings: None. Skeletal structures: No acute abnormality. IMPRESSION: 1. No acute findings. Signer Name: Gregg Partida MD Signed: 04/13/2019 4:09 PM Workstation Name: [employer]
[2019-04-13] MEDS: hydrALAZINE 20 MG/1 ML INJ IV PRN (19:37)
[2019-04-14] MEDS: PROMETHAZINE 50 MG RECT SUPP PR PRN ×3 (01:58→19:31)
[2019-04-14] MEDS: INSULIN LISPRO 100 UNIT/ML SUB-Q SCH ×5 (02:58→23:47)
[2019-04-14] MEDS: GENTAMICIN 0.3% OPHTH SOLN 5 ML OU SCH ×6 (02:59→22:18)
[2019-04-14] MEDS: GABAPENTIN 300 MG CAP PO SCH ×3 (05:08→23:48)
[2019-04-14 09:09] LABS: BUN/Creatinine Ratio 16; Blood Urea Nitrogen 11 mg/dL (7-17); Calcium 8.8 mg/dL (8.4-10.2); Hemolysis Index 2
[2019-04-14] MEDS ORDERED: INSULIN GLARGINE 100 UNITS/ML SUB-Q ONE (10:00)
[2019-04-14] MEDS: FAMOTIDINE 20 MG TAB PO SCH ×2 (10:08→23:48)
[2019-04-14] MEDS: INSULIN REGULAR, HUMAN 100 UNITS/1 ML SUB-Q SCH (12:58)
[2019-04-14] MEDS: SODIUM CHLORIDE 0.45% 1000 ML 1,000 ML IV SCH (17:18)
[2019-04-14] MEDS: METOCLOPRAMIDE 10 MG/2 ML INJ IV PRN (18:15)
--- NOTE | 2019-04-14 18:59 | Progress Note ---
Assessment and Plan Assessment and plan: 19-year-old woman with type 1 diabetes who presents with hyperglycemia. Patient also complaining of intractable nausea and vomiting due to gastroparesis, she then became less responsive. Type 1 insulin-dependent diabetes with persistent hyperglycemia Off insulin drip, continue subcutaneous insulins, Diabetic gastroparesis Antiemetics, trial of clear liquid diet Diabetic neuropathy Continue gabapentin Dehydration; IV fluids Hypertension BP meds, hydralazine as needed monitor blood pressure curve Marijuana abuse Preventative health counseling performed for 17 minutes DVT prophylaxis; early ambulation History Interval history: Review of systems Constitutional: No fevers, no malaise, no joint pains CVS: No chest pain, no orthopnea, no dyspnea on exertion, no pedal edema GI: Nausea has resolved, denies abdominal pain presently Respiratory: no wheezing, no coughing Hospitalist Physical - Physical exam Narrative exam: General.: No distress HEENT: Moist mucous membranes, extraocular muscles intact, no lymphadenopathy Neck: supple Cardiac: S1-S2 heard Lungs: clear to auscultation bilaterally Abdomen: soft , nontender, nondistended, bowel sounds positive Extremities: no edema clubbing or cyanosis Skin: no rash or lesions Neurologic: no gross focal deficits Psych: calm, and cooperative - Constitutional Vitals: Temp Pulse Resp BP Pulse Ox 98.9 F 117 H 20 149/106 100 04/14/19 11:58 04/14/19 11:58 04/14/19 11:58 04/14/19 11:58 04/14/19 11:58 General appearance: Present: mild distress, well-nourished Results - Labs CBC & Chem 7: 04/12/19 04:00 04/14/19 08:39 Labs: Laboratory Last Values WBC 15.0 K/mm3 (4.5-11.0) H 04/12/19 04:00 RBC 3.68 M/mm3 (3.65-5.03) 04/12/19 04:00 Hgb 10.0 gm/dl (10.1-14.3) L 04/12/19 04:00 Hct 31.2 % (30.3-42.9) 04/12/19 04:00 MCV 85 fl (79-97) 04/12/19 04:00 MCH 27 pg (28-32) L 04/12/19 04:00 MCHC 32 % (30-34) 04/12/19 04:00 RDW 19.9 % (13.2-15.2) H 04/12/19 04:00 Plt Count 272 K/mm3 (140-440) 04/12/19 04:00 Lymph % (Auto) 16.8 % (13.4-35.0) 04/11/19 08:21 [place] % (Auto) 2.8 % (0.0-7.3) 04/11/19 08:21 Eos % (Auto) 0.2 % (0.0-4.3) 04/11/19 08:21 Baso % (Auto) 0.4 % (0.0-1.8) 04/11/19 08: Lymph # 1.1 K/mm3 (1.2-5.4) L 04/11/19 08:21 [place] # 0.2 K/mm3 (0.0-0.8) 04/11/19 08:21 Eos # 0.0 K/mm3 (0.0-0.4) 04/11/19 08:21 Baso # 0.0 K/mm3 (0.0-0.1) 04/11/19 08:21 Add Manual Diff Complete 04/12/19 04:00 Total Counted 100 04/12/19 04:00 Seg Neutrophils % 79.8 % (40.0-70.0) H 04/11/19 08:21 Seg Neuts % (Manual) 74.0 % (40.0-70.0) H 04/12/19 04:00 Band Neutrophils % 0 % 04/12/19 04:00 Lymphocytes % (Manual) 18.0 % (13.4-35.0) 04/12/19 04:00 Reactive Lymphs % (Man) 0 % 04/12/19 04:00 Monocytes % (Manual) 8.0 % (0.0-7.3) H 04/12/19 04:00 Eosinophils % (Manual) 0 % (0.0-4.3) 04/12/19 04:00 Basophils % (Manual) 0 % (0.0-1.8) 04/12/19 04:00 Metamyelocytes % 0 % 04/12/19 04:00 Myelocytes % 0 % 04/12/19 04:00 Promyelocytes % 0 % 04/12/19 04:00 Blast Cells % 0 % 04/12/19 04:00 Nucleated RBC % Not Reportable 04/12/19 04:00 Seg Neutrophils # 5.3 K/mm3 (1.8-7.7) 04/11/19 08:21 Seg Neutrophils # Man 11.1 K/mm3 (1.8-7.7) H 04/12/19 04:00 Band Neutrophils # 0.0 K/mm3 04/12/19 04:00 Lymphocytes # (Manual) 2.7 K/mm3 (1.2-5.4) 04/12/19 04:00 Abs React Lymphs (Man) 0.0 K/mm3 04/12/19 04:00 Monocytes # (Manual) 1.2 K/mm3 (0.0-0.8) H 04/12/19 04:00 Eosinophils # (Manual) 0.0 K/mm3 (0.0-0.4) 04/12/19 04:00 Basophils # (Manual) 0.0 K/mm3 (0.0-0.1) 04/12/19 04:00 Metamyelocytes # 0.0 K/mm3 04/12/19 04:00 Myelocytes # 0.0 K/mm3 04/12/19 04:00 Promyelocytes # 0.0 K/mm3 04/12/19 04:00 Blast Cells # 0.0 K/mm3 04/12/19 04:00 WBC Morphology Not Reportable 04/12/19 04:00 Hypersegmented Neuts Not Reportable 04/12/19 04:00 Hyposegmented Neuts Not Reportable 04/12/19 04:00 Hypogranular Neuts Not Reportable 04/12/19 04:00 Smudge Cells Not Reportable 04/12/19 04:00 Toxic Granulation Not Reportable 04/12/19 04:00 Toxic Vacuolation Not Reportable 04/12/19 04:00 Dohle Bodies Not Reportable 04/12/19 04:00 Pelger-Huet Anomaly Not Reportable 04/12/19 04:00 Navi Rods Not Reportable 04/12/19 04:00 Platelet Estimate Consistent w auto 04/12/19 04:00 Clumped Platelets Not Reportable 04/12/19 04:00 Plt Clumps, EDTA Not Reportable 04/12/19 04:00 Large Platelets Not Reportable 04/12/19 04:00 Giant Platelets Not Reportable 04/12/19 04:00 Platelet Satelliting Not Reportable 04/12/19 04:00 Plt Morphology Comment Not Reportable 04/12/19 04:00 RBC Morphology Not Reportable 04/12/19 04:00 Dimorphic RBCs Not Reportable 04/12/19 04:00 Polychromasia Not Reportable 04/12/19 04:00 Hypochromasia Not Reportable 04/12/19 04:00 Poikilocytosis Not Reportable 04/12/19 04:00 Anisocytosis Not Reportable 04/12/19 04:00 Microcytosis Not Reportable 04/12/19 04:00 Macrocytosis Not Reportable 04/12/19 04:00 Spherocytes Not Reportable 04/12/19 04:00 Pappenheimer Bodies Not Reportable 04/12/19 04:00 Sickle Cells Not Reportable 04/12/19 04:00 Target Cells Not Reportable 04/12/19 04:00 Tear Drop Cells Not Reportable 04/12/19 04:00 Ovalocytes Few 04/12/19 04:00 Helmet Cells Not Reportable 04/12/19 04:00 [place] Bodies Not Reportable 04/12/19 04:00 [place]own Rings Not Reportable 04/12/19 04:00 Alanna Cells Not Reportable 04/12/19 04:00 Bite Cells Not Reportable 04/12/19 04:00 Crenated Cell Not Reportable 04/12/19 04:00 Elliptocytes Not Reportable 04/12/19 04:00 Acanthocytes (Spur) Not Reportable 04/12/19 04:00 Rouleaux Not Reportable 04/12/19 04:00 Hemoglobin C Crystals Not Reportable 04/12/19 04:00 Schistocytes Rare 04/12/19 04:00 Malaria parasites Not Reportable 04/12/19 04:00 Evaristo Bodies Not Reportable 04/12/19 04:00 Hem Pathologist Commnt No 04/12/19 04:00 VBG pH 7.412 (7.320-7.420) 04/11/19 08:19 Sodium 137 mmol/L (137-145) 04/14/19 08:39 Potassium 3.8 mmol/L (3.6-5.0) 04/14/19 08:39 Chloride 100.1 mmol/L (98-107) 04/14/19 08:39 Carbon Dioxide 15 mmol/L (22-30) L 04/14/19 08:39 Anion Gap 26 mmol/L 04/14/19 08:39 BUN 11 mg/dL (7-17) 04/14/19 08:39 Creatinine 0.7 mg/dL (0.7-1.2) 04/14/19 08:39 Estimated GFR > 60 ml/min 04/14/19 08:39 BUN/Creatinine Ratio 16 % 04/14/19 08:39 Glucose 248 mg/dL (65-100) H 04/14/19 08:39 POC Glucose 72 (70-105) 04/14/19 17:25 Hemoglobin A1c 10.4 % (4-6) H 04/11/19 11:37 Ketones Quantitative Small (Negative) 04/11/19 08:19 Lactic Acid 1.10 mmol/L (0.7-2.0) 04/11/19 08:19 Calcium 8.8 mg/dL (8.4-10.2) 04/14/19 08:39 Magnesium 2.10 mg/dL (1.7-2.3) 04/11/19 08:17 Total Bilirubin 0.40 mg/dL (0.1-1.2) 04/11/19 08:17 Direct Bilirubin < 0.2 mg/dL (0-0.2) 04/11/19 08:17 Indirect Bilirubin 0.2 mg/dL 04/11/19 08:17 AST 16 units/L (5-40) 04/11/19 08:17 ALT 12 units/L (7-56) 04/11/19 08:17 Alkaline Phosphatase 83 units/L (35-129) 04/11/19 08:17 Total Creatine Kinase 130 units/L (30-135) 04/11/19 08:17 CK-MB (CK-2) 1.4 ng/mL (0.0-4.0) 04/11/19 08:17 CK-MB (CK-2) Rel Index 1.0 (0-4) 04/11/19 08:17 Troponin T < 0.010 ng/mL (0.00-0.029) 04/11/19 08:17 Total Protein 8.1 g/dL (6.3-8.2) 04/11/19 08:17 Albumin 4.4 g/dL (3.9-5) 04/11/19 08:17 Albumin/Globulin Ratio 1.2 % 04/11/19 08:17 Lipase 8 units/L (13-60) L 04/11/19 08:17 HCG, Qual Negative (Negative) 04/11/19 08:18 Urine Color Straw (Yellow) 04/11/19 Unknown Urine Turbidity Clear (Clear) 04/11/19 Unknown Urine pH 6.0 (5.0-7.0) 04/11/19 Unknown Ur Specific [place] 1.030 (1.003-1.030) 04/11/19 Unknown Urine Protein 30 mg/dl mg/dL (Negative) 04/11/19 Unknown Urine Glucose (UA) >=500 mg/dL (Negative) 04/11/19 Unknown Urine Ketones 80 mg/dL (Negative) 04/11/19 Unknown Urine Blood Sm (Negative) 04/11/19 Unknown Urine Nitrite Neg (Negative) 04/11/19 Unknown Urine Bilirubin Neg (Negative) 04/11/19 Unknown Urine Urobilinogen < 2.0 mg/dL (<2.0) 04/11/19 Unknown Ur Leukocyte Esterase Neg (Negative) 04/11/19 Unknown Urine WBC (Auto) < 1.0 /HPF (0.0-6.0) 04/11/19 Unknown Urine RBC (Auto) 4.0 /HPF (0.0-6.0) 04/11/19 Unknown U Epithel Cells (Auto) < 1.0 /HPF (0-13.0) 04/11/19 Unknown Urine Mucus Few /HPF 04/11/19 Unknown Urine Opiates Screen Presumptive negative 04/11/19 Unknown Urine Methadone Screen Presumptive negative 04/11/19 Unknown Ur Barbiturates Screen Presumptive negative 04/11/19 Unknown Ur Phencyclidine Scrn Presumptive negative 04/11/19 Unknown Ur Amphetamines Screen Presumptive negative 04/11/19 Unknown U Benzodiazepines Scrn Presumptive negative 04/11/19 Unknown Urine Cocaine Screen Presumptive negative 04/11/19 Unknown U Marijuana (THC) Screen Presumptive positive 04/11/19 Unknown Drugs of Abuse Note Disclamer 04/11/19 Unknown Active Medications - Current Medications Current Medications: Generic Name Dose Route Start Last Admin Trade Name Freq PRN Reason Stop Dose Admin Acetaminophen 650 mg 04/11/19 11:27 Tylenol PO Q4H PRN Pain MILD(1-3)/Fever >100.5/ARANDA Dextrose 0 ml 04/11/19 12:27 04/12/19 04:27 D50w (25gm) Syringe IV 25 ml Q30MIN PRN Administration Hypoglycemia Protocol Famotidine 20 mg 04/11/19 22:00 04/14/19 10:08 Pepcid PO 20 mg BID BRIANNA Administration Gabapentin 900 mg 04/11/19 14:00 04/14/19 13:04 Gabapentin PO 900 mg Q8HR BRIANNA Administration Gentamicin Sulfate 2 drops 04/11/19 12:00 04/14/19 17:18 Gentamicin 0.3% Ophth Soln OU 2 drops Q4H BRIANNA Administration Hydralazine HCl 10 mg 04/11/19 12:58 04/13/19 19:37 Apresoline IV 10 mg Q4HR PRN Administration BP >160/100 Sodium Chloride 1,000 mls @ 150 mls/hr 04/12/19 05:00 04/14/19 17:18 Nacl 0.45% 1000 Ml IV 150 mls/hr DIRECT BRIANNA Administration Insulin Human Lispro 0 unit 04/11/19 12:00 04/14/19 17:20 Humalog SUB-Q Not Given Q6HR [facility] Protocol Insulin Human Regular 5 units 04/11/19 13:00 04/14/19 12:58 Humulin R SUB-Q 5 units DAILY@1200 BRIANNA Administration Ketorolac Tromethamine 15 mg 04/11/19 12:58 04/11/19 18:05 Toradol IV 04/16/19 12:57 15 mg Q6H PRN Administration Pain, Mild (1-3) Metoclopramide HCl 10 mg 04/11/19 11:27 04/14/19 18:15 Reglan IV 10 mg Q6H PRN Administration Nausea And Vomiting Ondansetron HCl 4 mg 04/11/19 11:27 04/13/19 12:49 Zofran IV 4 mg Q4H PRN Administration Nausea And Vomiting Promethazine HCl 50 mg 04/11/19 11:22 04/14/19 10:14 Phenergan NH 50 mg Q6H PRN Administration Nausea Nutrition/Malnutrition Assess - Dietary Evaluation Nutrition/Malnutrition Findings: Nutrition Notes Start: 04/12/19 10:21 Freq: Status: Active Protocol: Document 04/14/19 16:10 OH (Rec: 04/14/19 16:11 OH [id number]) Nutrition Notes Subjective/Other Information Pt. sleeping with head covered . [employer] tried to engage pt multiple times without success . Nutrition Intervention Follow-Up By: 04/15/19
--- NOTE | 2019-04-14 19:12 | Progress Note ---
Assessment and Plan Pt is alert and awake. No acute respiratory distress. She is resting on room air with an O2 saturation of 100%. She denies any shortness of breath, chest pain, or cough. She is afebrile. She has a leukocytosis. CXR from 04/11/19 reported no acute findings. Pt was admitted for gastroperesis. She denies any smoking history, drug use, or alcohol use.[place] She is allergic to clindamycin. She is single and has no children. - Patient Problems (1) Diabetic gastroparesis Current Visit: Yes Status: Acute Plan to address problem: Aspiration precautions. Pt on Pepcid Management as per GI and primary care. (2) Hyperglycemia due to type 1 diabetes mellitus Current Visit: Yes Status: Acute Plan to address problem: Management as per primary care. (3) Metabolic acidosis Current Visit: Yes Status: Acute Plan to address problem: Likely from uncontrolled diabetes. Subjective Date of service: 04/14/19 Interval history: Pt is alert and awake. No acute respiratory distress. She is resting on room air with an O2 saturation of 100%. She denies any shortness of breath, chest pain, or cough. She is afebrile. She has a leukocytosis. CXR from 04/11/19 reported no acute findings. Pt was admitted for gastroperesis. She denies any smoking history, drug use, or alcohol use.[place] She is allergic to clindamycin. She is single and has no children. Objective Vital Signs - 12hr 04/14/19 11:58 Temperature 98.9 F Pulse Rate 117 H Respiratory 20 Rate Blood Pressure 149/106 O2 Sat by Pulse 100 Oximetry Constitutional: no acute distress, alert Eyes: non-icteric ENT: oropharynx moist Neck: supple, no lymphadenopathy, no JVD Effort: normal Ascultation: Bilateral: clear Cardiovascular: regular rate and rhythm Gastrointestinal: normoactive bowel sounds, soft, non-distended Integumentary: normal Extremities: no cyanosis, no edema Neurologic: normal mental status, non-focal exam Psychiatric: mood appropriate, affect normal CBC and BMP: 04/12/19 04:00 04/14/19 08:39 Abnormal lab findings: Abnormal Labs 04/11/19 04/11/19 04/11/19 08:17 08:21 08:24 WBC Hgb MCH 27 L RDW 19.2 H Lymph # 1.1 L Seg Neutrophils % 79.8 H Seg Neuts % (Manual) Monocytes % (Manual) Seg Neutrophils # Man Monocytes # (Manual) Sodium Chloride 96.8 L Carbon Dioxide 19 L Creatinine 0.6 L Glucose 480 H POC Glucose 354 H Hemoglobin A1c Calcium Lipase 8 L 04/11/19 04/11/19 04/11/19 10:20 11:24 11:37 WBC Hgb MCH RDW Lymph # Seg Neutrophils % Seg Neuts % (Manual) Monocytes % (Manual) Seg Neutrophils # Man Monocytes # (Manual) Sodium Chloride Carbon Dioxide 16 L Creatinine 0.6 L Glucose 354 H POC Glucose 371 H Hemoglobin A1c 10.4 H Calcium Lipase 04/11/19 04/11/19 04/11/19 11:43 13:16 14:30 WBC Hgb MCH RDW Lymph # Seg Neutrophils % Seg Neuts % (Manual) Monocytes % (Manual) Seg Neutrophils # Man Monocytes # (Manual) Sodium Chloride Carbon Dioxide 14 L 16 L Creatinine 0.6 L Glucose 347 H 346 H POC Glucose 351 H Hemoglobin A1c Calcium Lipase 04/11/19 04/11/19 04/11/19 15:11 16:01 17:23 WBC Hgb MCH RDW Lymph # Seg Neutrophils % Seg Neuts % (Manual) Monocytes % (Manual) Seg Neutrophils # Man Monocytes # (Manual) Sodium Chloride Carbon Dioxide Creatinine Glucose POC Glucose 347 H 327 H 265 H Hemoglobin A1c Calcium Lipase 04/11/19 04/11/19 04/12/19 18:42 20:58 00:08 WBC Hgb MCH RDW Lymph # Seg Neutrophils % Seg Neuts % (Manual) Monocytes % (Manual) Seg Neutrophils # Man Monocytes # (Manual) Sodium Chloride Carbon Dioxide 16 L Creatinine 0.6 L Glucose 177 H POC Glucose 196 H 107 H Hemoglobin A1c Calcium Lipase 04/12/19 04/12/19 04/12/19 04:00 04:00 04:00 WBC 15.0 H Hgb 10.0 L MCH 27 L RDW 19.9 H Lymph # Seg Neutrophils % Seg Neuts % (Manual) 74.0 H Monocytes % (Manual) 8.0 H Seg Neutrophils # Man 11.1 H Monocytes # (Manual) 1.2 H Sodium Chloride 108.0 H Carbon Dioxide 19 L Creatinine 0.6 L Glucose 47 L POC Glucose < 40 L Hemoglobin A1c Calcium 8.3 L Lipase 04/12/19 04/12/19 04/12/19 04:03 04:35 05:04 WBC Hgb MCH RDW Lymph # Seg Neutrophils % Seg Neuts % (Manual) Monocytes % (Manual) Seg Neutrophils # Man Monocytes # (Manual) Sodium Chloride Carbon Dioxide Creatinine Glucose POC Glucose < 40 L 40 L 111 H Hemoglobin A1c Calcium Lipase 04/12/19 04/12/19 04/12/19 07:42 12:12 12:28 WBC Hgb MCH RDW Lymph # Seg Neutrophils % Seg Neuts % (Manual) Monocytes % (Manual) Seg Neutrophils # Man Monocytes # (Manual) Sodium Chloride Carbon Dioxide 17 L Creatinine 0.6 L Glucose 171 H POC Glucose 118 H 138 H Hemoglobin A1c Calcium 8.1 L Lipase 04/12/19 04/13/19 04/13/19 16:53 05:47 09:33 WBC Hgb MCH RDW Lymph # Seg Neutrophils % Seg Neuts % (Manual) Monocytes % (Manual) Seg Neutrophils # Man Monocytes # (Manual) Sodium 133 L Chloride Carbon Dioxide 18 L Creatinine 0.5 L Glucose 163 H POC Glucose 157 H 136 H Hemoglobin A1c Calcium Lipase 04/13/19 04/13/19 04/13/19 11:50 17:32 21:53 WBC Hgb MCH RDW Lymph # Seg Neutrophils % Seg Neuts % (Manual) Monocytes % (Manual) Seg Neutrophils # Man Monocytes # (Manual) Sodium Chloride Carbon Dioxide Creatinine Glucose POC Glucose 172 H 241 H 278 H Hemoglobin A1c Calcium Lipase 04/14/19 04/14/19 04/14/19 06:35 08:39 12:08 WBC Hgb MCH RDW Lymph # Seg Neutrophils % Seg Neuts % (Manual) Monocytes % (Manual) Seg Neutrophils # Man Monocytes # (Manual) Sodium Chloride Carbon Dioxide 15 L Creatinine Glucose 248 H POC Glucose 233 H 172 H Hemoglobin A1c Calcium Lipase Chest x-ray: report reviewed (Reported no acute findings.), image reviewed
[2019-04-14] MEDS: hydrALAZINE 20 MG/1 ML INJ IV PRN (22:17)
[2019-04-15] MEDS: GENTAMICIN 0.3% OPHTH SOLN 5 ML OU SCH ×3 (00:42→10:17)
[2019-04-15] MEDS: SODIUM CHLORIDE 0.45% 1000 ML 1,000 ML IV SCH (00:42)
[2019-04-15] MEDS ORDERED: METOPROLOL TARTRATE 25 MG TAB PO ONE (01:15)
[2019-04-15] MEDS: GABAPENTIN 300 MG CAP PO SCH ×2 (05:14→13:16)
[2019-04-15] MEDS: INSULIN LISPRO 100 UNIT/ML SUB-Q SCH ×3 (05:22→17:38)
[2019-04-15 08:28] LABS: BUN/Creatinine Ratio 12; Blood Urea Nitrogen 7 mg/dL (7-17); Calcium 8.5 mg/dL (8.4-10.2); Hemolysis Index 3
[2019-04-15] MEDS: FAMOTIDINE 20 MG TAB PO SCH (09:56)
[2019-04-15] MEDS ORDERED: LISINOPRIL 10 MG TAB PO SCH (10:00)
[2019-04-15] MEDS ORDERED: METOCLOPRAMIDE 10 MG TAB PO SCH (11:30)
[2019-04-15 12:09] VITALS: BP 153/106
[2019-04-15] MEDS: INSULIN REGULAR, HUMAN 100 UNITS/1 ML SUB-Q SCH (12:28)
[2019-04-15] MEDS: METOCLOPRAMIDE 10 MG TAB PO SCH ×2 (12:28→17:37)
--- NOTE | 2019-04-15 12:48 | Progress Note ---
Assessment and Plan Pt is sleeping. No acute respiratory distress. She is resting on room air with an O2 saturation of 99%. Pt has a low grade fever. She has a leukocytosis. CXR from 04/11/19 reported no acute findings. Pt was admitted for gastroperesis. Recommend aspiration precautions. - Patient Problems (1) Diabetic gastroparesis Current Visit: Yes Status: Acute Plan to address problem: Aspiration precautions. Pt on Pepcid Management as per GI and primary care. (2) Hyperglycemia due to type 1 diabetes mellitus Current Visit: Yes Status: Acute Plan to address problem: Management as per primary care. (3) Metabolic acidosis Current Visit: Yes Status: Acute Plan to address problem: Likely from uncontrolled diabetes. Subjective Date of service: 04/15/19 Interval history: Pt is sleeping. No acute respiratory distress. She is resting on room air with an O2 saturation of 99%. Pt has a low grade fever. She has a leukocytosis. CXR from 04/11/19 reported no acute findings. Pt was admitted for gastroperesis. Recommend aspiration precautions. Objective Vital Signs - 12hr 04/15/19 04/15/19 04/15/19 00:49 05:12 09:57 Temperature 98.8 F Pulse Rate 125 H Respiratory 16 Rate Blood Pressure 126/80 143/93 128/71 O2 Sat by Pulse 98 Oximetry 04/15/19 12:04 Temperature 99.4 F Pulse Rate 119 H Respiratory 18 Rate Blood Pressure 153/106 O2 Sat by Pulse 99 Oximetry Constitutional: no acute distress, asleep Eyes: non-icteric ENT: oropharynx moist Neck: supple, no lymphadenopathy, no JVD Effort: normal Ascultation: Bilateral: clear Cardiovascular: regular rate and rhythm Gastrointestinal: normoactive bowel sounds, soft, non-distended Integumentary: normal Extremities: no cyanosis, no edema Neurologic: normal mental status, non-focal exam Psychiatric: mood appropriate, affect normal CBC and BMP: 04/12/19 04:00 04/15/19 07:47 Abnormal lab findings: Abnormal Labs 04/11/19 04/11/19 04/11/19 08:17 08:21 08:24 WBC Hgb MCH 27 L RDW 19.2 H Lymph # 1.1 L Seg Neutrophils % 79.8 H Seg Neuts % (Manual) Monocytes % (Manual) Seg Neutrophils # Man Monocytes # (Manual) Sodium Chloride 96.8 L Carbon Dioxide 19 L Creatinine 0.6 L Glucose 480 H POC Glucose 354 H Hemoglobin A1c Calcium Lipase 8 L 04/11/19 04/11/19 04/11/19 10:20 11:24 11:37 WBC Hgb MCH RDW Lymph # Seg Neutrophils % Seg Neuts % (Manual) Monocytes % (Manual) Seg Neutrophils # Man Monocytes # (Manual) Sodium Chloride Carbon Dioxide 16 L Creatinine 0.6 L Glucose 354 H POC Glucose 371 H Hemoglobin A1c 10.4 H Calcium Lipase 04/11/19 04/11/19 04/11/19 11:43 13:16 14:30 WBC Hgb MCH RDW Lymph # Seg Neutrophils % Seg Neuts % (Manual) Monocytes % (Manual) Seg Neutrophils # Man Monocytes # (Manual) Sodium Chloride Carbon Dioxide 14 L 16 L Creatinine 0.6 L Glucose 347 H 346 H POC Glucose 351 H Hemoglobin A1c Calcium Lipase 04/11/19 04/11/19 04/11/19 15:11 16:01 17:23 WBC Hgb MCH RDW Lymph # Seg Neutrophils % Seg Neuts % (Manual) Monocytes % (Manual) Seg Neutrophils # Man Monocytes # (Manual) Sodium Chloride Carbon Dioxide Creatinine Glucose POC Glucose 347 H 327 H 265 H Hemoglobin A1c Calcium Lipase 04/11/19 04/11/19 04/12/19 18:42 20:58 00:08 WBC Hgb MCH RDW Lymph # Seg Neutrophils % Seg Neuts % (Manual) Monocytes % (Manual) Seg Neutrophils # Man Monocytes # (Manual) Sodium Chloride Carbon Dioxide 16 L Creatinine 0.6 L Glucose 177 H POC Glucose 196 H 107 H Hemoglobin A1c Calcium Lipase 04/12/19 04/12/19 04/12/19 04:00 04:00 04:00 WBC 15.0 H Hgb 10.0 L MCH 27 L RDW 19.9 H Lymph # Seg Neutrophils % Seg Neuts % (Manual) 74.0 H Monocytes % (Manual) 8.0 H Seg Neutrophils # Man 11.1 H Monocytes # (Manual) 1.2 H Sodium Chloride 108.0 H Carbon Dioxide 19 L Creatinine 0.6 L Glucose 47 L POC Glucose < 40 L Hemoglobin A1c Calcium 8.3 L Lipase 04/12/19 04/12/19 04/12/19 04:03 04:35 05:04 WBC Hgb MCH RDW Lymph # Seg Neutrophils % Seg Neuts % (Manual) Monocytes % (Manual) Seg Neutrophils # Man Monocytes # (Manual) Sodium Chloride Carbon Dioxide Creatinine Glucose POC Glucose < 40 L 40 L 111 H Hemoglobin A1c Calcium Lipase 04/12/19 04/12/19 04/12/19 07:42 12:12 12:28 WBC Hgb MCH RDW Lymph # Seg Neutrophils % Seg Neuts % (Manual) Monocytes % (Manual) Seg Neutrophils # Man Monocytes # (Manual) Sodium Chloride Carbon Dioxide 17 L Creatinine 0.6 L Glucose 171 H POC Glucose 118 H 138 H Hemoglobin A1c Calcium 8.1 L Lipase 04/12/19 04/13/19 04/13/19 16:53 05:47 09:33 WBC Hgb MCH RDW Lymph # Seg Neutrophils % Seg Neuts % (Manual) Monocytes % (Manual) Seg Neutrophils # Man Monocytes # (Manual) Sodium 133 L Chloride Carbon Dioxide 18 L Creatinine 0.5 L Glucose 163 H POC Glucose 157 H 136 H Hemoglobin A1c Calcium Lipase 04/13/19 04/13/19 04/13/19 11:50 17:32 21:53 WBC Hgb MCH RDW Lymph # Seg Neutrophils % Seg Neuts % (Manual) Monocytes % (Manual) Seg Neutrophils # Man Monocytes # (Manual) Sodium Chloride Carbon Dioxide Creatinine Glucose POC Glucose 172 H 241 H 278 H Hemoglobin A1c Calcium Lipase 04/14/19 04/14/19 04/14/19 06:35 08:39 12:08 WBC Hgb MCH RDW Lymph # Seg Neutrophils % Seg Neuts % (Manual) Monocytes % (Manual) Seg Neutrophils # Man Monocytes # (Manual) Sodium Chloride Carbon Dioxide 15 L Creatinine Glucose 248 H POC Glucose 233 H 172 H Hemoglobin A1c Calcium Lipase 04/14/19 04/15/19 04/15/19 23:34 05:22 07:47 WBC Hgb MCH RDW Lymph # Seg Neutrophils % Seg Neuts % (Manual) Monocytes % (Manual) Seg Neutrophils # Man Monocytes # (Manual) Sodium 134 L Chloride 97.5 L Carbon Dioxide 13 L Creatinine 0.6 L Glucose 310 H POC Glucose 206 H 253 H Hemoglobin A1c Calcium Lipase 04/15/19 11:35 WBC Hgb MCH RDW Lymph # Seg Neutrophils % Seg Neuts % (Manual) Monocytes % (Manual) Seg Neutrophils # Man Monocytes # (Manual) Sodium Chloride Carbon Dioxide Creatinine Glucose POC Glucose 317 H Hemoglobin A1c Calcium Lipase
--- NOTE | 2019-04-15 13:27 | Discharge Summary ---
Providers - Providers Date of Admission: 04/11/19 11:45 Date of discharge: 04/15/19 Attending physician: AMBER KIRAN 04/11/19 11:27 Consult to Dietitian/Nutrition [CONS] Routine Physician Instructions: Reason For Exam: Reason for Consult: Diet education 04/11/19 12:27 Consult to Case Management [CONS] Routine Services Needed at Discharge: Other Notified:: Cayla Phone number called:: yes Was contact made?: Yes If yes, spoke with:: yes Time called:: 16:08 04/11/19 12:28 Consult to Physician [CONS] Urgent Comment: Consulting Provider: CASPER MONDRAGON Physician Instructions: Reason For Exam: DKA requires ICU Primary care physician: TRANSONIC ENGINEER Hospitalization Condition: Stable Hospital course: Patient is a 19-year-old AA woman with a history of type 1 diabetes mellitus who presents with hyperglycemia. Patient also complaining of intractable nausea and vomiting due to gastroparesis, she then became less responsive. Patient was seen and examined. Follow-up on current diagnosis of Gastroparesis. Overnight uneventful as no events directly reported to me. Patient denies any chest pain, shortness breath, vomiting or severe headaches. Imaging, nursing note, chart, labs and old chart reviewed. Discussed with patient. She still has nausea but refusing medication. She asked me to come back later because she was sleepy. She is refusing treatment and so there is nothing else to offer. Discharge Diagnoses Type 1 insulin-dependent diabetes with persistent hyperglycemia: Off insulin drip, continue subcutaneous insulins, she refuses long acting insulin, she uses only SSI at home but she refuses to give me the details Diabetic gastroparesis: Antiemetics, trial of clear liquid diet Diabetic neuropathy: Continue gabapentin Dehydration; IV fluids Hypertension: BP meds, hydralazine as needed monitor blood pressure curve Marijuana abuse: Preventative health counseling performed Tachycardia, is sinus due to persistent nausea Nonadherence: counseling done, I attempted to sit down and really educate her but she told me to come back DVT prophylaxis; early ambulation Disposition: TO HOME OR SELFCARE Time spent for discharge: 33 minutes Core Measure Documentation - Palliative Care Palliative Care/ Comfort Measures: Not Applicable - Core Measures Any of the following diagnoses?: none - VTE Discharge Requirements Deep Vein Thrombosis/Pulmonary Embolism Present on Admission: No Has pt received <5 days of overlap therapy or INR<2.0: No Anticoagulant overlap therapy prescribed at discharge: No Contraindication No Overlap Therapy order at DC: Not Indicated Exam - Physical Exam Narrative exam: Gen: WDWN, NAD, Awake, Alert, Orientated HEENT: NCAT, EOMI, PERRL, OP Clear Neck: supple, no adenopathy, no thyromegaly, no JVD CVS/Heart: RRR, normal S1S2, pulses present bilaterally Chest/Lungs: CTA B, Symmetrical chest expansion, good air entry bilaterally GI/Abdomen: soft, NTND, good bowel sounds, no guarding or rebound /Bladder: no suprapubic tenderness, no CVA or paraspinal tenderness Extermity/Skin: no c/c/e, no obvious rash MSK: FROM x 4 Neuro: CN 2-12 grossly intact, no new focal deficits Psych: calm - Constitutional Vitals: Temp Pulse Resp BP Pulse Ox 99.4 F 119 H 18 153/106 99 04/15/19 12:04 04/15/19 12:04 04/15/19 12:04 04/15/19 12:04 04/15/19 12:04 Plan Activity: other (no strenous activities unless cleared by PCP) Diet: diabetic (clear liquids and advance to soft in next 1-2 days), clear liquids Additional Instructions: Diet Alesha Nory with each meal. NO bread, muffins, broccoli, cauilflower. Chop up meat to tiny pieces. Pureed diet in diamond blender is ideal Follow up with: PRIMARY CARE, [Primary Care Provider] - 3-5 Days KATERYNA KESSLER MD [Staff Physician] - 7 Days Prescriptions: Insulin Regular, Human [HumuLIN R] 1 dose SQ Q4HR PRN #1000 ml PRN Reason: Hyperglycemia Metoclopramide [Reglan TAB] 10 mg PO TIDAC #30 tab
== END 2019-04-15 18:20 | disposition home or self-care (01) | DRG 637 ==
LOC: ED 07:13 → 3A 10:40 → OBSVTOIN 11:45 → CC1 12:51 → 3A 04-12 12:26
PROVIDERS: ADMIT Internal Medicine; ATTEND Internal Medicine
DX: E10.65 Type 1 diabetes mellitus with hyperglycemia (principal); E10.10 Type 1 diabetes mellitus with ketoacidosis without coma; E10.43 Type 1 diabetes mellitus with diabetic autonomic (poly)neuropathy; K31.84 Gastroparesis; G89.29 Other chronic pain; F12.90 Cannabis use, unspecified, uncomplicated; E10.40 Type 1 diabetes mellitus with diabetic neuropathy, unspecified; E86.0 Dehydration; I10 Essential (primary) hypertension; R00.0 Tachycardia, unspecified; Z79.4 Long term (current) use of insulin; Z88.1 Allergy status to other antibiotic agents
CPT/HCPCS: 36415; 70450; 71045; 74018; 80048; 80076; 80307; 81001; 82010; 82140; 82550; 82553; 82805; 82962; 83036; 83690; 83735; 84484; 84703; 85007; 85025; 93005; 93010; G0378; C9113; J0360; J1815; J1885; J2405; J2765; J3480; J7030

== ENCOUNTER 2019-05-18 02:51 | Emergency (ER) | payer SELFPAY ==
[2019-05-18 03:03] VITALS: BP 134/109
== END 2019-05-18 04:30 | disposition left against medical advice (07) ==
LOC: ED 02:51
DX: K31.84 Gastroparesis (principal); Z53.21 Procedure and treatment not carried out due to patient leaving prior to being seen by health care provider

== ENCOUNTER 2019-12-11 23:05 | Emergency (ER) | payer SELFPAY | END 2019-12-11 23:26 | disposition left against medical advice (07) | LOC: ED 23:05 | DX: R10.9 Unspecified abdominal pain (principal); Z53.21 Procedure and treatment not carried out due to patient leaving prior to being seen by health care provider ==

== ENCOUNTER 2019-12-16 18:29 | Emergency (ER) | payer SELFPAY ==
--- NOTE | 2019-12-16 19:04 | Emergency Department Report ---
Blank Doc - Documentation Documentation: 19*-year-old female that presents with abdominal pain with n/v. HX of gastrop aresis. This initial assessment/diagnostic orders/clinical plan/treatment(s) is/are subject to change based on patient's health status, clinical progression and re- assessment by fellow clinical providers in the ED. Further treatment and workup at subsequent clinical providers discretion. Patient/guardians urged not to elope from the ED as their condition may be serious if not clinically assessed and managed. Initial orders include: 1- Patient sent to [facility] for further evaluation and treatment 2- labs 3- UA
[2019-12-16 20:14] LABS: Basophils # (Auto) 0.1 K/mm3 (0.0-0.1); Eosinophils # (Auto) 0.1 K/mm3 (0.0-0.4); Hematocrit 33.9 % (30.3-42.9); Hemoglobin 10.9 gm/dl (10.1-14.3); Lymphocytes # (Auto) 2.9 K/mm3 (1.2-5.4); Mean Corpuscular HGB Conc 32 % (30-34); Mean Corpuscular Volume 80 fl (79-97); Monocytes # (Auto) 0.5 K/mm3 (0.0-0.8); Monocytes % (Auto) 7.3 % (0.0-7.3); Platelet Count 339 K/mm3 (140-440); Red Blood Count 4.23 M/mm3 (3.65-5.03); Red Cell Distribution Width 18.9 % (13.2-15.2)
[2019-12-16 20:55] LABS: Alanine Aminotransferase 18 units/L (7-56); Albumin 4.7 g/dL (3.9-5); BUN/Creatinine Ratio 8; Blood Urea Nitrogen 6 mg/dL (7-17); Hemolysis Index 14
[2019-12-16] MEDS ORDERED: diphenhydrAMINE 50 MG/ML VIAL IV ONE (23:08)
[2019-12-16] MEDS ORDERED: SODIUM CHLORIDE 0.9% 1000 ML 1,000 ML IV ONE (23:08)
[2019-12-16] MEDS ORDERED: LORazepam 2 MG/ML VIAL IV ONE (23:08)
[2019-12-16] MEDS ORDERED: ONDANSETRON 4 MG/2 ML INJ IV ONE (23:08)
--- NOTE | 2019-12-16 23:13 | Emergency Department Report ---
ED Abdominal Pain HPI - General Chief Complaint: Abdominal Pain Stated Complaint: GASTROPARESIS Time Seen by Provider: 12/16/19 19:03 Source: patient Mode of arrival: Ambulatory Limitations: No Limitations - History of Present Illness Initial Comments: Patient is 19 years old female with history of insulin-dependent diabetes and gastroparesis. Patient presented to the ER complaining of abdominal pain, diffuse associated with vomiting. Patient stated the symptoms started yesterday. Patient denies any chest pain or shortness of breath. Patient also denied any fever or chills. Patient is actively vomiting in the emergency room. Patient given Zofran, Benadryl and Ativan. MD Complaint: abdominal pain -: days(s) Location: diffuse Radiation: none Migration to: no migration Severity scale (0 -10): 6 Consistency: constant - Related Data Home Medications Medication Instructions Recorded Confirmed Last Taken Insulin NPH Hum/Reg Insulin Hm 1 each SQ 4XD 05/31/13 12/19/19 04/10/19 [NovoLIN 70-30 100 Unit/ml Vial] Previous Rx's Medication Instructions Recorded Last Taken Type Famotidine [Pepcid] 20 mg PO BID #60 tablet 12/15/17 Unknown Rx Acetaminophen [Acetaminophen TAB] 325 mg PO Q4H PRN #15 tablet 04/15/19 Unknown Rx Promethazine [Phenergan] 25 mg UT Q6HR PRN #20 supp.rect 12/17/19 Unknown Rx Promethazine [Phenergan SUPPOS] 25 mg UT QHS PRN #7 supp.rect 12/18/19 Unknown Rx Promethazine [Phenergan] 25 mg PO Q6HR PRN #20 tab 12/18/19 Unknown Rx Gabapentin 900 mg PO Q8HR #90 capsule 12/19/19 Unknown Rx Insulin Regular, Human [HumuLIN R] 6 dose SQ Q4HR PRN #1 vial 12/19/19 Unknown Rx LORazepam [Ativan] 1 mg PO QHS #10 tab 12/19/19 Unknown Rx Metoclopramide [Reglan TAB] 10 mg PO TIDAC 60 Days #30 tab 12/19/19 Unknown Rx lisinopriL [Zestril TAB] 10 mg PO QDAY #30 tablet 12/19/19 Unknown Rx Allergies Allergy/AdvReac Type Severity Reaction Status Date / Time clindamycin Allergy Swelling Verified 05/18/19 03:09 ED Review of Systems ROS: Stated complaint: GASTROPARESIS Other details as noted in HPI Comment: All other systems reviewed and negative Constitutional: denies: chills, fever Respiratory: denies: cough, shortness of breath, SOB with exertion Cardiovascular: denies: chest pain, palpitations Gastrointestinal: abdominal pain, nausea, vomiting Musculoskeletal: denies: back pain Neurological: denies: headache, weakness, numbness, paresthesias, confusion, abnormal gait ED Past Medical Hx - Past Medical History Previous Medical History?: Yes Hx Congestive Heart Failure: No Hx Diabetes: Yes (on INSULIN) Hx Asthma: No Additional medical history: Juvenile-onset diabetes, history of DKA. neuropathy - Social History Smoking Status: Never Smoker Substance Use Type: None - Medications Home Medications: Home Medications Medication Instructions Recorded Confirmed Last Taken Type Insulin NPH Hum/Reg Insulin Hm 1 each SQ 4XD 05/31/13 12/19/19 04/10/19 History [NovoLIN 70-30 100 Unit/ml Vial] Famotidine [Pepcid] 20 mg PO BID #60 tablet 12/15/17 12/19/19 Unknown Rx Acetaminophen [Acetaminophen TAB] 325 mg PO Q4H PRN #15 tablet 04/15/19 12/19/19 Unknown Rx Promethazine [Phenergan] 25 mg UT Q6HR PRN #20 supp.rect 12/17/19 12/19/19 Unknown Rx Promethazine [Phenergan SUPPOS] 25 mg UT QHS PRN #7 supp.rect 12/18/19 Unknown Rx Promethazine [Phenergan] 25 mg PO Q6HR PRN #20 tab 12/18/19 Unknown Rx Gabapentin 900 mg PO Q8HR #90 capsule 12/19/19 Unknown Rx Insulin Regular, Human [HumuLIN R] 6 dose SQ Q4HR PRN #1 vial 12/19/19 Unknown Rx LORazepam [Ativan] 1 mg PO QHS #10 tab 12/19/19 Unknown Rx Metoclopramide [Reglan TAB] 10 mg PO TIDAC 60 Days #30 tab 12/19/19 Unknown Rx lisinopriL [Zestril TAB] 10 mg PO QDAY #30 tablet 12/19/19 Unknown Rx ED Physical Exam - General Limitations: No Limitations General appearance: alert, in distress - Head Head exam: Present: atraumatic, normocephalic, normal inspection - Eye Eye exam: Present: normal appearance, PERRL - ENT ENT exam: Present: mucous membranes dry - Neck Neck exam: Present: normal inspection, full ROM. Absent: tenderness, meningismus, lymphadenopathy, thyromegaly - Respiratory Respiratory exam: Present: normal lung sounds bilaterally - Cardiovascular Cardiovascular Exam: Present: regular rate, normal rhythm, normal heart sounds - GI/Abdominal GI/Abdominal exam: Present: soft, tenderness, normal bowel sounds. Absent: distended, guarding, rebound, rigid, organomegaly, mass, bruit, pulsatile mass, hernia - Extremities Exam Extremities exam: Present: normal inspection, full ROM, normal capillary refill. Absent: tenderness, pedal edema, joint swelling, calf tenderness - Back Exam Back exam: Present: normal inspection, full ROM. Absent: CVA tenderness (R), CVA tenderness (L) - Neurological Exam Neurological exam: Present: alert, oriented X3, CN II-XII intact, normal gait, reflexes normal - Psychiatric Psychiatric exam: Present: normal mood - Skin Skin exam: Present: warm, dry, intact, normal color ED Course Vital Signs 12/16/19 12/17/19 19:06 01:59 Temperature 99.0 F Pulse Rate 115 H 87 Respiratory 20 16 Rate Blood Pressure 161/108 121/81 [Right] O2 Sat by Pulse 100 100 Oximetry ED Medical Decision Making - Lab Data Result diagrams: 12/16/19 20:00 12/16/19 20:00 - Medical Decision Making Patient is 19 years old female with history of insulin-dependent diabetes and gastroparesis. Patient presented to the ER complaining of abdominal pain, diffuse associated with vomiting. Patient stated the symptoms started yesterday. Patient denies any chest pain or shortness of breath. Patient also denied any fever or chills. Patient is actively vomiting in the emergency room. Patient given Zofran, Benadryl and Ativan. Patient evaluated by me multiple times. No active vomiting observed after medication. Labs reviewed and is unremarkable. No evidence of DKA. Critical care attestation.: If time is entered above; I have spent that time in minutes in the direct care of this critically ill patient, excluding procedure time. ED Disposition Clinical Impression: Diabetic gastroparesis, Abdominal pain Disposition: TO HOME OR SELFCARE Is pt being admited?: No Condition: Stable Instructions: Diabetes Mellitus Type 2 in Adults (ED), Abdominal Pain (ED) Prescriptions: Promethazine [Phenergan] 25 mg UT Q6HR PRN #20 supp.rect PRN Reason: Vomiting Referrals: PRIMARY CARE,MD [Primary Care Provider] - 3-5 Days
[2019-12-16 23:43] LABS: Bacteria,Urine 1+ /HPF (Negative); Bilirubin,Urine NEG (Negative); Blood,Urine SM (Negative); Color,Urine Yellow (Yellow); Urobilinogen,Urine < 2.0 mg/dL (<2.0)
[2019-12-16 23:49] LABS: Protein,Urine >500 mg/dL (Negative)
[2019-12-17 02:03] VITALS: BP 121/81
--- NOTE | 2019-12-17 02:23 | Cat Scan Report ---
CT OF THE ABDOMEN AND PELVIS WITHOUT CONTRAST INDICATION / CLINICAL INFORMATION: Abdominal pain with nausea and vomiting. TECHNIQUE: All CT scans at this location are performed using CT dose reduction for ALARA by means of automated e xposure control. COMPARISON: 12/15/17. FINDINGS: ABDOMEN: There is moderate diffuse bowel wall thickening involving the descending colon. There is pro bable milder bowel wall thickening involving the right colon. I see no evidence of bowel obstruction or free air. The liver, spleen, gallbladder, bile ducts, pancreas, adrenal glands and kidneys are normal. No adeno travis is seen. The lung bases are clear. PELVIS: The distal ureters and urinary bladder are normal. The uterus and adnexal regions are unremar kable. A normal appendix is present and there is no evidence of diverticulitis. No abnormal mass or f luid collection is seen. I do not identify a hernia. No acute osseous abnormality is identified. IMPRESSION: Mild to moderate nonspecific colitis. Signer Name: Toby Ramos MD Signed: 12/17/2019 2:18 AM Workstation Name: [id number]
== END 2019-12-17 02:48 | disposition home or self-care (01) ==
LOC: ED 18:29
DX: E11.43 Type 2 diabetes mellitus with diabetic autonomic (poly)neuropathy (principal); E11.40 Type 2 diabetes mellitus with diabetic neuropathy, unspecified; K31.84 Gastroparesis; R10.84 Generalized abdominal pain; R11.2 Nausea with vomiting, unspecified; Z79.899 Other long term (current) drug therapy; Z88.1 Allergy status to other antibiotic agents; Z79.4 Long term (current) use of insulin
CPT/HCPCS: 36415; 74176; 80053; 81001; 83690; 84703; 85025; 96361; 96374; 96375; 99284; J1200; J2060; J2405; J7030

== ENCOUNTER 2019-12-18 15:26 | Observation (INO) | payer OTHER ==
--- NOTE | 2019-12-18 16:08 | Emergency Department Report ---
ED General Adult HPI - General Chief complaint: Hypoglycemia Stated complaint: AMS/HYPOGLYCEMIA Time Seen by Provider: 12/18/19 16:04 Source: patient, EMS Mode of arrival: Stretcher Limitations: No Limitations - History of Present Illness Initial comments: here for n/v, for one day h/o dm, on insulin, states she had an hypoglycemic episode due to vomiting and unable to keep food down. no fever, chills or night sweats. -: Gradual, days(s) (1) - Related Data Home Medications Medication Instructions Recorded Confirmed Last Taken Insulin NPH Hum/Reg Insulin Hm 1 each SQ 4XD 05/31/13 04/12/19 04/10/19 [NovoLIN 70-30 100 Unit/ml Vial] Previous Rx's Medication Instructions Recorded Last Taken Type Famotidine [Pepcid] 20 mg PO BID #60 tablet 12/15/17 Unknown Rx Acetaminophen [Acetaminophen TAB] 325 mg PO Q4H PRN #15 tablet 04/15/19 Unknown Rx Gabapentin 900 mg PO Q8HR #90 capsule 04/15/19 Unknown Rx Insulin Regular, Human [HumuLIN R] 1 dose SQ Q4HR PRN #1000 ml 04/15/19 Unknown Rx Metoclopramide [Reglan TAB] 10 mg PO TIDAC #30 tab 04/15/19 Unknown Rx lisinopriL [Zestril TAB] 10 mg PO QDAY #30 tablet 04/15/19 Unknown Rx Promethazine [Phenergan] 25 mg SC Q6HR PRN #20 supp.rect 12/17/19 Unknown Rx traMADoL [Ultram 50 MG tab] 50 mg PO Q4HR PRN #14 tablet 12/17/19 Unknown Rx Promethazine [Phenergan SUPPOS] 25 mg SC QHS PRN #7 supp.rect 12/18/19 Unknown Rx Promethazine [Phenergan] 25 mg PO Q6HR PRN #20 tab 12/18/19 Unknown Rx Allergies Allergy/AdvReac Type Severity Reaction Status Date / Time clindamycin Allergy Swelling Verified 05/18/19 03:09 ED Review of Systems ROS: Stated complaint: AMS/HYPOGLYCEMIA Other details as noted in HPI Comment: All other systems reviewed and negative Gastrointestinal: abdominal pain, nausea, vomiting Genitourinary: denies: urgency ED Past Medical Hx - Past Medical History Hx Congestive Heart Failure: No Hx Diabetes: Yes (IDDM) Hx Asthma: No Additional medical history: Juvenile-onset diabetes, history of DKA. neuropathy - Social History Smoking Status: Never Smoker - Medications Home Medications: Home Medications Medication Instructions Recorded Confirmed Last Taken Type Insulin NPH Hum/Reg Insulin Hm 1 each SQ 4XD 05/31/13 04/12/19 04/10/19 History [NovoLIN 70-30 100 Unit/ml Vial] Famotidine [Pepcid] 20 mg PO BID #60 tablet 12/15/17 04/12/19 Unknown Rx Acetaminophen [Acetaminophen TAB] 325 mg PO Q4H PRN #15 tablet 04/15/19 Unknown Rx Gabapentin 900 mg PO Q8HR #90 capsule 04/15/19 Unknown Rx Insulin Regular, Human [HumuLIN R] 1 dose SQ Q4HR PRN #1000 ml 04/15/19 Unknown Rx Metoclopramide [Reglan TAB] 10 mg PO TIDAC #30 tab 04/15/19 Unknown Rx lisinopriL [Zestril TAB] 10 mg PO QDAY #30 tablet 04/15/19 Unknown Rx Promethazine [Phenergan] 25 mg SC Q6HR PRN #20 supp.rect 12/17/19 Unknown Rx traMADoL [Ultram 50 MG tab] 50 mg PO Q4HR PRN #14 tablet 12/17/19 Unknown Rx Promethazine [Phenergan SUPPOS] 25 mg SC QHS PRN #7 supp.rect 12/18/19 Unknown Rx Promethazine [Phenergan] 25 mg PO Q6HR PRN #20 tab 12/18/19 Unknown Rx ED Physical Exam - General Limitations: No Limitations General appearance: alert, in no apparent distress - Head Head exam: Present: atraumatic, normocephalic - Eye Eye exam: Present: normal appearance - ENT ENT exam: Present: mucous membranes moist - Neck Neck exam: Present: normal inspection - Respiratory Respiratory exam: Present: normal lung sounds bilaterally. Absent: respiratory distress - Cardiovascular Cardiovascular Exam: Present: regular rate, normal rhythm. Absent: systolic murmur, diastolic murmur, rubs, gallop - GI/Abdominal GI/Abdominal exam: Present: soft, normal bowel sounds - Extremities Exam Extremities exam: Present: normal inspection - Back Exam Back exam: Present: normal inspection - Neurological Exam Neurological exam: Present: alert, oriented X3 - Psychiatric Psychiatric exam: Present: normal affect, normal mood - Skin Skin exam: Present: warm, dry, intact, normal color. Absent: rash ED Course Vital Signs 12/18/19 15:38 Temperature 98.6 F Pulse Rate 114 H Respiratory 18 Rate Blood Pressure 154/103 O2 Sat by Pulse 97 Oximetry - Reevaluation(s) Reevaluation #1: 12/18/19 20:18 multiple aliquots of pain, antiemetic given to patients, still unable to keep food down, still hurting, fsbs drop below 30 d/t unable to being fed. Will admit for further txt. ED Medical Decision Making - Lab Data Result diagrams: 12/18/19 16:13 12/18/19 16:13 Critical care attestation.: If time is entered above; I have spent that time in minutes in the direct care of this critically ill patient, excluding procedure time. ED Disposition Clinical Impression: Diabetic gastroparesis Disposition: DC-09 OP ADMIT IP TO THIS HOSP Is pt being admited?: Yes Does the pt Need Aspirin: No Condition: Stable Instructions: Diabetes Mellitus Type 2 in Adults (ED) Prescriptions: Promethazine [Phenergan SUPPOS] 25 mg SC QHS PRN #7 supp.rect PRN Reason: Vomiting Promethazine [Phenergan] 25 mg PO Q6HR PRN #20 tab PRN Reason: Nausea Referrals: PRIMARY CARE, [Primary Care Provider] - 3-5 Days
[2019-12-18] MEDS ORDERED: diphenhydrAMINE 50 MG/ML VIAL IV ONE ×2 (16:14→18:22)
[2019-12-18] MEDS ORDERED: LORazepam 2 MG/ML VIAL IV ONE (16:14)
[2019-12-18 17:41] LABS: Hematocrit 32.8 % (30.3-42.9); Hemoglobin 10.5 gm/dl (10.1-14.3); Mean Corpuscular HGB Conc 32 % (30-34); Mean Corpuscular Volume 78 fl (79-97); Platelet Count 354 K/mm3 (140-440); Red Cell Distribution Width 19.4 % (13.2-15.2)
[2019-12-18 17:43] LABS: Alanine Aminotransferase 16 units/L (7-56); Albumin 4.8 g/dL (3.9-5); BUN/Creatinine Ratio 10; Blood Urea Nitrogen 9 mg/dL (7-17); Hemolysis Index 8
[2019-12-18] MEDS ORDERED: ONDANSETRON 4 MG/2 ML INJ IV ONE (18:22)
[2019-12-18] MEDS ORDERED: MORPHINE 4 MG/1 ML INJ IV ONE (18:22)
[2019-12-18] MEDS ORDERED: DEXTROSE 50% IN WATER (25GM) 50 ML SYRINGE IV ONE (21:25)
[2019-12-18] MEDS ORDERED: GLUCAGON (HUMAN RECOMBINANT) 1 MG/ML INJ IM ONE (21:27)
[2019-12-18] MEDS ORDERED: SODIUM CHLORIDE 0.9% 1000 ML 1,000 ML IV ONE (21:33)
[2019-12-18] MEDS ORDERED: D5W/0.45% NACL 1,000 ML IV SCH (22:00)
[2019-12-18] MEDS ORDERED: ACETAMINOPHEN 325 MG TAB PO PRN (22:55)
[2019-12-18] MEDS ORDERED: DEXTROSE 50% IN WATER (25GM) 50 ML SYRINGE IV PRN (22:55)
[2019-12-18] MEDS ORDERED: MAGNESIUM HYDROXIDE (MOM) ORAL LIQD UDC PO PRN (22:55)
--- NOTE | 2019-12-18 23:08 | History and Physical Report ---
History of Present Illness Date of examination: 12/18/19 Date of admission: 12/18/19 22:16 Chief complaint: Nausea and Vomiting History of present illness: 19-year-old female with known history of diabetes mellitus, neuropathy and gastroparesis presenting to the emergency room today complaining of nausea and vomiting with associated abdominal discomfort. Patient indicates she has not been able to keep any food down and therefore has been hypoglycemic. Patient denies any chest pain or shortness of breath, no fever or chills, no headache or dizziness, denies any diaphoresis. Work-up in the emergency room reveals a blood glucose of about 69 patient placed on IV fluid. She had multiple doses of IV glucose injection in the emergency room. Past History Past Medical History: diabetes, other (Neuropathy,Gastroparesis) Past Surgical History: No surgical history Social history: no significant social history Family history: no significant family history Medications and Allergies Allergies Allergy/AdvReac Type Severity Reaction Status Date / Time clindamycin Allergy Swelling Verified 05/18/19 03:09 Home Medications Medication Instructions Recorded Confirmed Last Taken Type Insulin NPH Hum/Reg Insulin Hm 1 each SQ 4XD 05/31/13 12/19/19 04/10/19 History [NovoLIN 70-30 100 Unit/ml Vial] Famotidine [Pepcid] 20 mg PO BID #60 tablet 12/15/17 12/19/19 Unknown Rx Acetaminophen [Acetaminophen TAB] 325 mg PO Q4H PRN #15 tablet 04/15/19 12/19/19 Unknown Rx Gabapentin 900 mg PO Q8HR #90 capsule 04/15/19 12/19/19 Unknown Rx Insulin Regular, Human [HumuLIN R] 1 dose SQ Q4HR PRN #1000 ml 04/15/19 12/19/19 Unknown Rx Metoclopramide [Reglan TAB] 10 mg PO TIDAC #30 tab 04/15/19 12/19/19 Unknown Rx lisinopriL [Zestril TAB] 10 mg PO QDAY #30 tablet 04/15/19 12/19/19 Unknown Rx Promethazine [Phenergan] [address] Q6HR PRN #20 supp.rect 12/17/19 12/19/19 Unknown Rx Promethazine [Phenergan SUPPOS] [address] QHS PRN #7 supp.rect 12/18/19 Unknown Rx Promethazine [Phenergan] 25 mg PO Q6HR PRN #20 tab 12/18/19 Unknown Rx Active Meds: Active Medications Acetaminophen (Tylenol) 650 mg PO Q4H PRN PRN Reason: Pain MILD(1-3)/Fever >100.5/ARANDA Dextrose (D50w (25gm) Syringe) 50 ml IV Q30MIN PRN; Protocol PRN Reason: Hypoglycemia Dextrose (D50w (25gm) Syringe) 50 ml IV Q30MIN PRN; Protocol PRN Reason: Hypoglycemia Enoxaparin Sodium (Enoxaparin) 40 mg SUB-Q QDAY@2200 BRIANNA; Protocol Dextrose/Sodium Chloride (D5/0.45ns) 1,000 mls @ 75 mls/hr IV DIRECT BRIANNA Potassium Chloride (Kcl 10meq/100ml) 10 meq in 100 mls @ 100 mls/hr IV ONCE ONE Stop: 12/18/19 23:59 Insulin Human Lispro (Humalog) 0 unit SUB-Q Q4H BRIANNA; Protocol Magnesium Hydroxide (Milk Of Magnesia) 30 ml PO Q4H PRN PRN Reason: Constipation Morphine Sulfate (Morphine) 2 mg IV Q4H PRN PRN Reason: Pain, Moderate (4-6) Ondansetron HCl (Zofran) 4 mg IV Q8H PRN PRN Reason: Nausea And Vomiting Sodium Chloride (Sodium Chloride Flush Syringe 10 Ml) 10 ml IV BID BRIANNA Sodium Chloride (Sodium Chloride Flush Syringe 10 Ml) 10 ml IV PRN PRN PRN Reason: LINE FLUSH Review of Systems Constitutional: no fever, no chills Ears, nose, mouth and throat: no nasal congestion, no sore throat Cardiovascular: no chest pain, no palpitations Respiratory: no cough, no shortness of breath Gastrointestinal: abdominal pain, nausea, vomiting, no diarrhea Genitourinary Female: no pelvic pain, no flank pain, no dysuria, no hematuria Musculoskeletal: no neck pain, no low back pain Integumentary: no rash, no pruritis Neurological: no headaches, no confusion Psychiatric: no anxiety, no depression Exam - Constitutional Vitals: Temp Pulse Resp BP Pulse Ox 98.6 F 114 H 18 154/103 97 12/18/19 15:38 12/18/19 15:38 12/18/19 15:38 12/18/19 15:38 12/18/19 15:38 General appearance: Present: no acute distress, well-nourished - EENT Eyes: Present: PERRL, EOM intact. Absent: scleral icterus ENT: hearing intact, clear oral mucosa, dentition normal - Neck Neck: Present: supple, normal ROM - Respiratory Respiratory effort: normal Respiratory: bilateral: CTA - Cardiovascular Rhythm: regular Heart Sounds: Present: S1 & S2. Absent: gallop, systolic murmur, diastolic murmur, rub - Extremities Extremities: no ischemia, pulses intact, pulses symmetrical, No edema, Full ROM Peripheral Pulses: within normal limits - Abdominal General gastrointestinal: Present: soft, tender, non-distended, normal bowel sounds. Absent: mass Localized gastrointestinal: tender: epigastric periumbilical, guarding: epigastric periumbilical - Integumentary Integumentary: Present: clear, warm, dry. Absent: rash - Musculoskeletal Musculoskeletal: strength equal bilaterally - Psychiatric Psychiatric: appropriate mood/affect, intact judgment & insight, memory intact, cooperative - Neurologic Neurologic: CNII-XII intact, no focal deficits, no moves all extremities Results - Labs CBC & Chem 7: 12/19/19 06:05 12/18/19 16:13 Labs: Abnormal lab results 12/18/19 12/18/19 12/18/19 Range/Units 16:13 16:13 21:40 MCV 78 L (79-97) fl MCH 25 L (28-32) pg RDW 19.4 H (13.2-15.2) % Potassium 3.5 L (3.6-5.0) mmol/L POC Glucose < 40 L (70-105) mg/dL Total Protein 9.1 H (6.3-8.2) g/dL Assessment and Plan - Patient Problems (1) Diabetic gastroparesis Current Visit: Yes Status: Acute Plan to address problem: Patient placed on IV Zofran. (2) Abdominal pain Current Visit: No Status: Acute Plan to address problem: Possibly secondary to the intractable nausea and vomiting. Will place on IV analgesic medication as needed. (3) Hypoglycemia Current Visit: Yes Status: Acute Plan to address problem: Due to the intractable nausea and vomiting. We will monitor Accu-Cheks closely. Patient commenced on D5 half-normal saline. (4) DVT prophylaxis Current Visit: Yes Status: Acute Plan to address problem: Patient placed on subcutaneous on Lovenox. (5) Full code status Current Visit: Yes Status: Acute
[2019-12-18] MEDS ORDERED: POTASSIUM CHLORIDE 10 MEQ 10 MEQ/100 ML BAG IV ONE (23:15)
[2019-12-18] MEDS ORDERED: ONDANSETRON 4 MG/2 ML INJ ONE (23:22)
[2019-12-18] MEDS ORDERED: MORPHINE 2 MG/1 ML INJ ONE (23:23)
[2019-12-18] MEDS: MORPHINE 2 MG/1 ML INJ IV PRN (23:25)
[2019-12-18] MEDS: ONDANSETRON 4 MG/2 ML INJ IV PRN (23:25)
[2019-12-18] MEDS ORDERED: SODIUM CHLORIDE 0.9% 1000 ML 1,000 ML ONE (23:28)
[2019-12-18] MEDS: INSULIN LISPRO 100 UNIT/ML VIAL 3 mL SUB-Q SCH (23:36)
[2019-12-19] MEDS ORDERED: POTASSIUM CHLORIDE 10 MEQ 10 MEQ/100 ML BAG IV ONE (02:00)
[2019-12-19] MEDS: MORPHINE 2 MG/1 ML INJ IV PRN ×3 (03:17→13:19)
[2019-12-19] MEDS: INSULIN LISPRO 100 UNIT/ML VIAL 3 mL SUB-Q SCH ×4 (03:26→17:12)
[2019-12-19 05:47] VITALS: BP 144/99
[2019-12-19 06:22] LABS: Basophils # (Auto) 0.1 K/mm3 (0.0-0.1); Basophils % (Auto) 0.8 % (0.0-1.8); Eosinophils # (Auto) 0.2 K/mm3 (0.0-0.4); Eosinophils % (Auto) 2.7 % (0.0-4.3); Hemoglobin 8.7 gm/dl (10.1-14.3); Lymphocytes # (Auto) 3.8 K/mm3 (1.2-5.4); Mean Corpuscular HGB Conc 32 % (30-34); Mean Corpuscular Volume 78 fl (79-97); Monocytes # (Auto) 0.6 K/mm3 (0.0-0.8); Monocytes % (Auto) 6.9 % (0.0-7.3); Platelet Count 282 K/mm3 (140-440); Red Blood Count 3.44 M/mm3 (3.65-5.03); Red Cell Distribution Width 18.9 % (13.2-15.2)
[2019-12-19 06:34] LABS: INR 1.15 (0.87-1.13)
[2019-12-19] MEDS ORDERED: diphenhydrAMINE 50 MG/ML VIAL IV PRN (06:34)
[2019-12-19 06:43] LABS: BUN/Creatinine Ratio 8; Blood Urea Nitrogen 6 mg/dL (7-17); Calcium 7.9 mg/dL (8.4-10.2); Hemolysis Index 16
[2019-12-19] MEDS: ONDANSETRON 4 MG/2 ML INJ IV PRN (08:25)
[2019-12-19] MEDS: METOCLOPRAMIDE 10 MG TAB PO SCH ×2 (13:00→17:12)
--- NOTE | 2019-12-19 17:55 | Discharge Summary ---
Providers - Providers Date of Admission: 12/18/19 22:16 Date of discharge: 12/19/19 Attending physician: JOHNY HUERTA 12/18/19 22:56 Consult to Dietitian/Nutrition [CONS] Routine Physician Instructions: Reason For Exam: Reason for Consult: Diet education Primary care physician: BOX STAPLER Hospitalization Condition: Stable Hospital course: 19-year-old female with known history of diabetes mellitus, neuropathy and gastroparesis presenting to the emergency room today complaining of nausea and vomiting with associated abdominal discomfort. Patient indicates she has not been able to keep any food down and therefore has been hypoglycemic. Patient denies any chest pain or shortness of breath, no fever or chills, no headache or dizziness, denies any diaphoresis. Work-up in the emergency room reveals a blood glucose of about 69 patient placed on IV fluid. She had multiple doses of IV glucose injection in the emergency room. (1) Diabetic gastroparesis Current Visit: Yes Status: Acute Plan to address problem: Improved (2) Abdominal pain Current Visit: No Status: Acute Plan to address problem: Possibly secondary to the intractable nausea and vomiting. Will place on IV analgesic medication as needed. (3) Hypoglycemia Current Visit: Yes Status: Acute Plan to address problem: corrected Disposition: DC-01 TO HOME OR SELFCARE - Discharge Diagnoses (1) Diabetic gastroparesis Status: Acute (2) Hypoglycemia Status: Acute (3) Metabolic acidosis Status: Acute Core Measure Documentation - Palliative Care Palliative Care/ Comfort Measures: Not Applicable - Core Measures Any of the following diagnoses?: none Exam - Constitutional Vitals: Temp Pulse Resp BP Pulse Ox 98.0 F 91 H 16 144/99 99 12/19/19 05:08 12/19/19 05:08 12/19/19 05:08 12/19/19 05:08 12/19/19 05:08 General appearance: Present: no acute distress, well-nourished - EENT Eyes: Present: PERRL ENT: hearing intact, clear oral mucosa - Neck Neck: Present: supple, normal ROM - Respiratory Respiratory effort: normal Respiratory: bilateral: CTA - Cardiovascular Heart rate: 78 Rhythm: regular Heart Sounds: Present: S1 & S2. Absent: rub, click - Extremities Extremities: no ischemia, pulses intact, pulses symmetrical, No edema Peripheral Pulses: within normal limits - Abdominal General gastrointestinal: Present: soft, non-tender, non-distended, normal bowel sounds Female genitourinary: Present: normal - Integumentary Integumentary: Present: clear, warm, dry - Musculoskeletal Musculoskeletal: gait normal, strength equal bilaterally - Psychiatric Psychiatric: appropriate mood/affect, intact judgment & insight - Neurologic Neurologic: CNII-XII intact, moves all extremities Plan Activity: no restrictions Diet: diabetic Follow up with: PRIMARY CARE, [Primary Care Provider] - 3-5 Days Prescriptions: Promethazine [Phenergan] 25 mg PO Q6HR PRN #20 tab PRN Reason: Nausea Promethazine [Phenergan SUPPOS] 25 mg [place] QHS PRN #7 supp.rect PRN Reason: Vomiting
[2019-12-19] MEDS ORDERED: INSULIN LISPRO 100 UNIT/ML VIAL 3 mL SUB-Q SCH (22:00)
[2019-12-19] MEDS ORDERED: ENOXAPARIN 40 MG/0.4 ML INJ SUB-Q SCH (22:00)
== END 2019-12-19 18:59 | disposition home or self-care (01) ==
LOC: ED 15:26 → 3A 22:16
PROVIDERS: ADMIT Internal Medicine Geriatric Medicine; ATTEND Internal Medicine
DX: E11.43 Type 2 diabetes mellitus with diabetic autonomic (poly)neuropathy (principal); K31.84 Gastroparesis; E11.649 Type 2 diabetes mellitus with hypoglycemia without coma; E11.40 Type 2 diabetes mellitus with diabetic neuropathy, unspecified; E11.10 Type 2 diabetes mellitus with ketoacidosis without coma; E87.2 Acidosis; Z79.4 Long term (current) use of insulin; Z79.899 Other long term (current) drug therapy
CPT/HCPCS: 36415; 80048; 80053; 82962; 83036; 85025; 85027; 85610; 96361; 96372; 96374; 96375; 96376; 99284; G0378; J1200; J1610; J2060; J2270; J2405; J3480; J7030

== ENCOUNTER 2020-01-19 17:06 | Emergency (ER) | payer SELFPAY ==
[2020-01-19 19:06] VITALS: BP 131/91
[2020-01-19] MEDS ORDERED: ONDANSETRON 4 MG ODT TAB PO ONE (20:11)
--- NOTE | 2020-01-19 20:12 | Event Note ---
ED Screening Note ED Screening Note: hx of gastroparesis states she has type I DM began flare yesterday N/v no diarrhea two days ago normal BM no dysuria allergy: clindamycin LNMP: on currently This initial assessment/diagnostic orders/clinical plan/treatment(s) is/are subject to change based on patients health status, clinical progression and re- assessment by fellow clinical providers in the ED. Further treatment and workup at subsequent clinical providers discretion. Patient/guardian urged not to elope from the ED as their condition may be serious if not clinically assessed and managed. Initial orders include: labs, UA zofran ODT
[2020-01-19 20:51] LABS: Basophils # (Auto) 0.1 K/mm3 (0.0-0.1); Basophils % (Auto) 0.8 % (0.0-1.8); Eosinophils # (Auto) 0.3 K/mm3 (0.0-0.4); Eosinophils % (Auto) 4.4 % (0.0-4.3); Hematocrit 32.7 % (30.3-42.9); Hemoglobin 10.5 gm/dl (10.1-14.3); Lymphocytes # (Auto) 2.6 K/mm3 (1.2-5.4); Lymphocytes % (Auto) 33.2 % (13.4-35.0); Mean Corpuscular HGB Conc 32 % (30-34); Mean Corpuscular Volume 79 fl (79-97); Monocytes # (Auto) 0.4 K/mm3 (0.0-0.8); Monocytes % (Auto) 5.7 % (0.0-7.3); Platelet Count 233 K/mm3 (140-440); Red Blood Count 4.14 M/mm3 (3.65-5.03); Red Cell Distribution Width 18.9 % (13.2-15.2)
[2020-01-19 21:08] LABS: Alanine Aminotransferase 12 units/L (7-56); Albumin 4.4 g/dL (3.9-5); BUN/Creatinine Ratio 11; Blood Urea Nitrogen 10 mg/dL (7-17); Calcium 10.2 mg/dL (8.4-10.2); Hemolysis Index 7
[2020-01-19 22:28] LABS: Bilirubin,Urine NEG (Negative); Blood,Urine SM (Negative); Color,Urine Colorless (Yellow); Urobilinogen,Urine < 2.0 mg/dL (<2.0); WBC,Urine < 1.0 /HPF (0.0-6.0)
[2020-01-20] MEDS ORDERED: diphenhydrAMINE 50 MG/ML VIAL IV STA (01:47)
[2020-01-20] MEDS ORDERED: SODIUM CHLORIDE 0.9% 1000 ML 1,000 ML IV ONE (01:47)
[2020-01-20] MEDS ORDERED: LORazepam 2 MG/ML VIAL IV ONE (01:47)
--- NOTE | 2020-01-20 07:07 | Emergency Department Report ---
ED N/V/D HPI - General Chief complaint: Abdominal Pain Stated complaint: GASTRO PAIN Time Seen by Provider: 01/19/20 20:10 Source: patient Mode of arrival: Ambulatory Limitations: No Limitations - History of Present Illness Initial comments: 19-year-old F [place] female insulin-dependent diabetes mellitus that emerge department complaining of reemergence of her gastroparesis over the last 6 2 weeks s. She has tried the Reglan, Phenergan, Zofran that was provided from her previous doctor visits to no avail. States that she normally utilizes Ativan and Benadryl to resolve the symptoms. Reports no fever, chills, sweats hemoptysis hematemesis no hematochezia reports no chest pain or palpitations. MD complaint: nausea, vomiting -: Gradual Description of Vomiting: food contents Description of Diarrhea: water Location: diffuse Severity: mild, moderate Consistency: constant Improves with: none Worsens with: none - Related Data Home Medications Medication Instructions Recorded Confirmed Last Taken Insulin NPH Hum/Reg Insulin Hm 1 each SQ 4XD 05/31/13 12/19/19 04/10/19 [NovoLIN 70-30 100 Unit/ml Vial] Previous Rx's Medication Instructions Recorded Last Taken Type Famotidine [Pepcid] 20 mg PO BID #60 tablet 12/15/17 Unknown Rx Acetaminophen [Acetaminophen TAB] 325 mg PO Q4H PRN #15 tablet 04/15/19 Unknown Rx Promethazine [Phenergan] 25 mg [place] Q6HR PRN #20 supp.rect 12/17/19 Unknown Rx Promethazine [Phenergan SUPPOS] 25 mg [place] QHS PRN #7 supp.rect 12/18/19 Unknown Rx Promethazine [Phenergan] 25 mg PO Q6HR PRN #20 tab 12/18/19 Unknown Rx Gabapentin 900 mg PO Q8HR #90 capsule 12/19/19 Unknown Rx Insulin Regular, Human [HumuLIN R] 6 dose SQ Q4HR PRN #1 vial 12/19/19 Unknown Rx LORazepam [Ativan] 1 mg PO QHS #10 tab 12/19/19 Unknown Rx Metoclopramide [Reglan TAB] 10 mg PO TIDAC 60 Days #30 tab 12/19/19 Unknown Rx lisinopriL [Zestril TAB] 10 mg PO QDAY #30 tablet 12/19/19 Unknown Rx LORazepam [Ativan] 0.5 mg PO BID PRN #10 tab 01/20/20 Unknown Rx Allergies Allergy/AdvReac Type Severity Reaction Status Date / Time clindamycin Allergy Swelling Verified 05/18/19 03:09 ED Review of Systems ROS: Stated complaint: GASTRO PAIN Other details as noted in HPI Comment: All other systems reviewed and negative ED Past Medical Hx - Past Medical History Previous Medical History?: Yes Hx Congestive Heart Failure: No Hx Diabetes: Yes (IDDM) Hx Asthma: No Hx COPD: No Additional medical history: Juvenile-onset diabetes, history of DKA. neuropathy - Surgical History Past Surgical History?: No - Social History Smoking Status: Never Smoker Substance Use Type: None - Medications Home Medications: Home Medications Medication Instructions Recorded Confirmed Last Taken Type Insulin NPH Hum/Reg Insulin Hm 1 each SQ 4XD 05/31/13 12/19/19 04/10/19 History [NovoLIN 70-30 100 Unit/ml Vial] Famotidine [Pepcid] 20 mg PO BID #60 tablet 12/15/17 12/19/19 Unknown Rx Acetaminophen [Acetaminophen TAB] 325 mg PO Q4H PRN #15 tablet 04/15/19 12/19/19 Unknown Rx Promethazine [Phenergan] 25 mg [place] Q6HR PRN #20 supp.rect 12/17/19 12/19/19 Unknown Rx Promethazine [Phenergan SUPPOS] 25 mg [place] QHS PRN #7 supp.rect 12/18/19 Unknown Rx Promethazine [Phenergan] 25 mg PO Q6HR PRN #20 tab 12/18/19 Unknown Rx Gabapentin 900 mg PO Q8HR #90 capsule 12/19/19 Unknown Rx Insulin Regular, Human [HumuLIN R] 6 dose SQ Q4HR PRN #1 vial 12/19/19 Unknown Rx LORazepam [Ativan] 1 mg PO QHS #10 tab 12/19/19 Unknown Rx Metoclopramide [Reglan TAB] 10 mg PO TIDAC 60 Days #30 tab 12/19/19 Unknown Rx lisinopriL [Zestril TAB] 10 mg PO QDAY #30 tablet 12/19/19 Unknown Rx LORazepam [Ativan] 0.5 mg PO BID PRN #10 tab 01/20/20 Unknown Rx ED Physical Exam - General Limitations: No Limitations General appearance: alert, in no apparent distress - Head Head exam: Present: atraumatic, normocephalic - Eye Eye exam: Present: normal appearance, PERRL, EOMI - ENT ENT exam: Present: mucous membranes moist - Neck Neck exam: Present: normal inspection - Respiratory Respiratory exam: Present: normal lung sounds bilaterally. Absent: respiratory distress, rhonchi, stridor - Cardiovascular Cardiovascular Exam: Present: regular rate, normal rhythm. Absent: systolic murmur, diastolic murmur, rubs, gallop - GI/Abdominal GI/Abdominal exam: Present: soft, normal bowel sounds. Absent: tenderness, guarding, hyperactive bowel sounds, hypoactive bowel sounds - Extremities Exam Extremities exam: Present: normal inspection, full ROM, normal capillary refill - Back Exam Back exam: Present: normal inspection. Absent: CVA tenderness (R), CVA tenderness (L) - Neurological Exam Neurological exam: Present: alert, oriented X3, CN II-XII intact, normal gait - Psychiatric Psychiatric exam: Present: normal affect, normal mood - Skin Skin exam: Present: warm, dry, intact, normal color. Absent: rash ED Course Vital Signs 01/19/20 19:04 Temperature 98.1 F Pulse Rate 99 H Respiratory 18 Rate Blood Pressure 131/91 [Right] O2 Sat by Pulse 98 Oximetry ED Medical Decision Making - Lab Data Result diagrams: 01/19/20 20:31 01/19/20 20:31 - Medical Decision Making 29-year-old female past no history of gastroparesis was emerged from complaining of nausea and vomiting and feels that she is having an exacerbation of her gastroparesis a actual reason of the symptoms is not clear but the patient is overall overall well-appearing and is suspected to have a transient course of illness. Given the history and examination does not appear to be an emergent cause of symptoms such as small bowel obstruction, coronary artery disease, bowel ischemia, DKA, pancreatitis, appendicitis other acute abdomen or other emergent problem. Reassessment. She was treated accordingly with Ativan fluids and Benadryl and show no current signs of any of any dehydration. Disposition she will be discharged home with prompt primary care physician for follow-up in the next 24 to 36 hours and strict return precautions were discussed Critical care attestation.: If time is entered above; I have spent that time in minutes in the direct care of this critically ill patient, excluding procedure time. ED Disposition Clinical Impression: Diabetic gastroparesis, Nausea & vomiting Disposition: DC-01 TO HOME OR SELFCARE Is pt being admited?: No Does the pt Need Aspirin: No Condition: Stable Instructions: Nausea, Adult, Insulin Treatment for Diabetes Mellitus, Gastropa resis, Diabetes Mellitus Type 2 in Adults (ED), Abdominal Pain (ED) Additional Instructions: Please follow-up with your primary care provider for definitive treatment of your gastroparesis you have been provided of a few Ativan as this is the only medication to control your gastroparesis all your labs were within range Prescriptions: LORazepam [Ativan] 0.5 mg PO BID PRN #10 tab PRN Reason: gastroparesis Referrals: [facility] [Provider Group] - 3-5 Days [facility] [Outside] - 3-5 Days KATHERINE BARRY MD [Staff Physician] - 3-5 Days PRIMARY CAREMD [Primary Care Provider] - 3-5 Days
== END 2020-01-20 06:45 | disposition home or self-care (01) ==
LOC: ED 17:06
DX: E11.43 Type 2 diabetes mellitus with diabetic autonomic (poly)neuropathy (principal); K31.84 Gastroparesis; R11.2 Nausea with vomiting, unspecified; Z88.8 Allergy status to other drugs, medicaments and biological substances; Z79.899 Other long term (current) drug therapy
CPT/HCPCS: 36415; 80053; 81001; 83690; 84703; 85025; 96361; 96374; 96375; 99283; J1200; J2060; J7030; Q0162

== ENCOUNTER 2020-01-25 13:59 | Emergency (ER) | payer SELFPAY ==
[2020-01-25] MEDS ORDERED: ONDANSETRON 4 MG ODT TAB PO ONE (15:26)
--- NOTE | 2020-01-25 15:26 | Event Note ---
ED Screening Note ED Screening Note: states she has gastroparesis flare states it began a week ago has N/v she is taking reglan without relief has not seen her GI doctor in over a year no diarrhea BM yesterday normal no fever no dysuria PMHx DM allergy: clindamycin states her BG was 94 a couple of hours ago LNMP: a week ago This initial assessment/diagnostic orders/clinical plan/treatment(s) is/are subject to change based on patients health status, clinical progression and re- assessment by fellow clinical providers in the ED. Further treatment and workup at subsequent clinical providers discretion. Patient/guardian urged not to elope from the ED as their condition may be serious if not clinically assessed and managed. Initial orders include: labs, UA, zofran ODT
[2020-01-25 16:29] LABS: Basophils # (Auto) 0.1 K/mm3 (0.0-0.1); Eosinophils # (Auto) 0.3 K/mm3 (0.0-0.4); Eosinophils % (Auto) 3.8 % (0.0-4.3); Hematocrit 30.3 % (30.3-42.9); Hemoglobin 9.8 gm/dl (10.1-14.3); Lymphocytes # (Auto) 2.1 K/mm3 (1.2-5.4); Lymphocytes % (Auto) 29.3 % (13.4-35.0); Mean Corpuscular HGB Conc 32 % (30-34); Mean Corpuscular Volume 79 fl (79-97); Monocytes # (Auto) 0.3 K/mm3 (0.0-0.8); Monocytes % (Auto) 4.7 % (0.0-7.3); Platelet Count 304 K/mm3 (140-440); Red Blood Count 3.82 M/mm3 (3.65-5.03); Red Cell Distribution Width 19.8 % (13.2-15.2)
[2020-01-25 16:47] LABS: Alanine Aminotransferase 18 units/L (7-56); Albumin 3.9 g/dL (3.9-5); BUN/Creatinine Ratio 16; Blood Urea Nitrogen 16 mg/dL (7-17); Calcium 9.9 mg/dL (8.4-10.2); Hemolysis Index 5
[2020-01-25] MEDS ORDERED: SODIUM CHLORIDE 0.9% 1000 ML 1,000 ML IV ONE (23:18)
[2020-01-25] MEDS ORDERED: diphenhydrAMINE 50 MG/ML VIAL IV ONE (23:18)
[2020-01-25] MEDS ORDERED: LORazepam 2 MG/ML VIAL IV ONE (23:18)
--- NOTE | 2020-01-25 23:21 | Emergency Department Report ---
HPI - General Chief Complaint: Abdominal Pain Time Seen by Provider: 01/25/20 15:24 - HPI HPI: This is a 19-year-old -[place] female presents to the emergency department from home with complaint of nausea, vomiting and epigastric abdominal discomfort. The patient has a history of insulin-dependent diabetes and recurrent gastroparesis. Patient was here 5 days ago for similar symptoms and got some relief with Ativan and Benadryl. 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 Currently abdominal pain is 5 out of 10 in intensity. No known alleviating factors. Patient says that the pain worsens after she eats certain foods. She denies any fever, dysuria, vaginal bleeding or discharge, back pain. She has not taken anything for symptoms prior to presentation today. No recent travel or sick contacts at home. ED Past Medical Hx - Past Medical History Previous Medical History?: Yes Hx Congestive Heart Failure: No Hx Diabetes: Yes (IDDM) Hx Asthma: No Hx COPD: No Additional medical history: Juvenile-onset diabetes, history of DKA. neuropathy, Gastroparesisi - Surgical History Past Surgical History?: No - Social History Smoking Status: Never Smoker Substance Use Type: None - Medications Home Medications: Home Medications Medication Instructions Recorded Confirmed Last Taken Type Insulin NPH Hum/Reg Insulin Hm 1 each SQ 4XD 05/31/13 12/19/19 04/10/19 History [NovoLIN 70-30 100 Unit/ml Vial] Famotidine [Pepcid] 20 mg PO BID #60 tablet 12/15/17 12/19/19 Unknown Rx Acetaminophen [Acetaminophen TAB] 325 mg PO Q4H PRN #15 tablet 04/15/19 12/19/19 Unknown Rx Promethazine [Phenergan] 25 mg [place] Q6HR PRN #20 supp.rect 12/17/19 12/19/19 Unknown Rx Promethazine [Phenergan SUPPOS] 25 mg [place] QHS PRN #7 supp.rect 12/18/19 Unknown Rx Promethazine [Phenergan] 25 mg PO Q6HR PRN #20 tab 12/18/19 Unknown Rx Gabapentin 900 mg PO Q8HR #90 capsule 12/19/19 Unknown Rx Insulin Regular, Human [HumuLIN R] 6 dose SQ Q4HR PRN #1 vial 12/19/19 Unknown Rx LORazepam [Ativan] 1 mg PO QHS #10 tab 12/19/19 Unknown Rx lisinopriL [Zestril TAB] 10 mg PO QDAY #30 tablet 12/19/19 Unknown Rx LORazepam [Ativan] 0.5 mg PO BID PRN #8 tab 01/26/20 Unknown Rx Metoclopramide [Reglan TAB] 10 mg PO TID PRN #20 tab 01/26/20 Unknown Rx ED Review of Systems ROS: Stated complaint: DIABETIC/GASTRO PAIN Other details as noted in HPI Comment: All other systems reviewed and negative Constitutional: denies: chills, fever Eyes: denies: eye pain, vision change ENT: denies: ear pain, throat pain Respiratory: denies: cough, shortness of breath Cardiovascular: denies: chest pain, palpitations Gastrointestinal: abdominal pain, nausea, vomiting Genitourinary: denies: dysuria, discharge Musculoskeletal: denies: back pain, arthralgia Skin: denies: rash, lesions Neurological: denies: headache, weakness Physical Exam - Physical Exam Vital Signs: Vital Signs 01/25/20 14:14 Temperature 98.7 F Pulse Rate 111 H Respiratory 20 Rate Blood Pressure 119/56 O2 Sat by Pulse 98 Oximetry Physical Exam: GENERAL: The patient is well-developed well-nourished. HENT: Normocephalic. Atraumatic. Patient has moist mucous membranes. EYES: Extraocular motions are intact. NECK: Supple. Trachea is midline. CHEST/LUNGS: Clear to auscultation. There is no respiratory distress noted. HEART/CARDIOVASCULAR: Regular. There is no tachycardia. There is no murmur. ABDOMEN: Abdomen is soft. There is some epigastric abdominal tenderness to palpation. No guarding. Patient has normal bowel sounds. SKIN: Skin is warm and dry. NEURO: The patient is awake, alert, and oriented. The patient is cooperative. Normal speech. MUSCULOSKELETAL: There is no tenderness or deformity. There is no limitation range of motion. ED Course Vital Signs 01/25/20 14:14 Temperature 98.7 F Pulse Rate 111 H Respiratory 20 Rate Blood Pressure 119/56 O2 Sat by Pulse 98 Oximetry - Reevaluation(s) Reevaluation #1: 01/26/20 04:19 Lab Results 12/08/0801/25/20 01/25/20 Range/Units 15:56 15:56 15:56 WBC 7.1 (4.5-11.0) K/mm3 RBC 3.82 (3.65-5.03) M/mm3 Hgb 9.8 L (10.1-14.3) gm/dl Hct 30.3 (30.3-42.9) % MCV 79 (79-97) fl MCH 26 L (28-32) pg MCHC 32 (30-34) % RDW 19.8 H (13.2-15.2) % Plt Count 304 (140-440) K/mm3 Lymph % (Auto) 29.3 (13.4-35.0) % [place] % (Auto) 4.7 (0.0-7.3) % Eos % (Auto) 3.8 (0.0-4.3) % Baso % (Auto) 1.0 (0.0-1.8) % Lymph # (Auto) 2.1 (1.2-5.4) K/mm3 [place] # (Auto) 0.3 (0.0-0.8) K/mm3 Eos # (Auto) 0.3 (0.0-0.4) K/mm3 Baso # (Auto) 0.1 (0.0-0.1) K/mm3 Seg Neutrophils % 61.2 (40.0-70.0) % Seg Neutrophils # 4.3 (1.8-7.7) K/mm3 Sodium 137 (137-145) mmol/L Potassium 4.2 (3.6-5.0) mmol/L Chloride 102.2 (98-107) mmol/L Carbon Dioxide 26 (22-30) mmol/L Anion Gap 13 mmol/L BUN 16 (7-17) mg/dL Creatinine 1.0 (0.6-1.2) mg/dL Estimated GFR > 60 ml/min BUN/Creatinine Ratio 16 % Glucose 299 H (65-100) mg/dL POC Glucose (70-105) mg/dL Calcium 9.9 (8.4-10.2) mg/dL Total Bilirubin < 0.20 (0.1-1.2) mg/dL AST 21 (5-40) units/L ALT 18 (7-56) units/L Alkaline Phosphatase 139 H (35-129) units/L Total Protein 8.1 (6.3-8.2) g/dL Albumin 3.9 (3.9-5) g/dL Albumin/Globulin Ratio 0.9 % Lipase 15 (13-60) units/L HCG, Qual Negative (Negative) 01/25/20 Range/Units 23:57 WBC (4.5-11.0) K/mm3 RBC (3.65-5.03) M/mm3 Hgb (10.1-14.3) gm/dl Hct (30.3-42.9) % MCV (79-97) fl MCH (28-32) pg MCHC (30-34) % RDW (13.2-15.2) % Plt Count (140-440) K/mm3 Lymph % (Auto) (13.4-35.0) % [place] % (Auto) (0.0-7.3) % Eos % (Auto) (0.0-4.3) % Baso % (Auto) (0.0-1.8) % Lymph # (Auto) (1.2-5.4) K/mm3 [place] # (Auto) (0.0-0.8) K/mm3 Eos # (Auto) (0.0-0.4) K/mm3 Baso # (Auto) (0.0-0.1) K/mm3 Seg Neutrophils % (40.0-70.0) % Seg Neutrophils # (1.8-7.7) K/mm3 Sodium (137-145) mmol/L Potassium (3.6-5.0) mmol/L Chloride (98-107) mmol/L Carbon Dioxide (22-30) mmol/L Anion Gap mmol/L BUN (7-17) mg/dL Creatinine (0.6-1.2) mg/dL Estimated GFR ml/min BUN/Creatinine Ratio % Glucose (65-100) mg/dL POC Glucose 235 H (70-105) mg/dL Calcium (8.4-10.2) mg/dL Total Bilirubin (0.1-1.2) mg/dL AST (5-40) units/L ALT (7-56) units/L Alkaline Phosphatase (35-129) units/L Total Protein (6.3-8.2) g/dL Albumin (3.9-5) g/dL Albumin/Globulin Ratio % Lipase (13-60) units/L HCG, Qual (Negative) - EJ/Peripheral Line Arm R Time Out Performed: Yes Indications: nurses unable to establis Skin Cleansed in Sterile Fashion: Yes Size: 20 Dressing Placed: tape Patient Tolerated Procedure: well ED Medical Decision Making - Lab Data Result diagrams: 01/25/20 15:56 01/25/20 15:56 - Radiology Data Radiology results: image reviewed interpreted by me: Abdominal x-ray shows nonspecific nonobstructive bowel gas - Medical Decision Making This patient presents to the emergency department abdominal pain, nausea and vomiting. The abdominal pain is epigastric. There is some reproducible tenderness to palpation. However, the abdomen is soft, nondistended, and nontoxic in appearance. Patient's labs have been mostly unremarkable including CBC, metabolic panel, lipase. There is some anemia, but it is consistent with previous visits and does not require a transfusion at this time. Patient was given some IV fluid resuscitation, a dose of Ativan and Benadryl. Upon reevaluation she appears clinically improved. Patient was able to pass an oral challenge by drinking water without any return of nausea and vomiting. An abdominal x-ray shows nonspecific nonobstructive bowel gas. Vital signs have been reassuring throughout her ED course including being afebrile. For all these reasons the patient appears safe for discharge home at this time. 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 I have given her other options of primary care and gastroenterology for outpatient follow-up. She has been instructed to increase oral rehydration. She has been given a small amount of benzodiazepines and an antiemetic. She will return to the emergency department with any worsening of her symptoms or with any acute distress. Critical Care Time: No Critical care attestation.: If time is entered above; I have spent that time in minutes in the direct care of this critically ill patient, excluding procedure time. ED Disposition Clinical Impression: Diabetic gastroparesis Nausea & vomiting Qualifiers: Vomiting type: unspecified Vomiting Intractability: non-intractable Qualified Code(s): R11.2 - Nausea with vomiting, unspecified Abdominal pain Qualifiers: Abdominal location: epigastric Qualified Code(s): R10.13 - Epigastric pain Disposition: TO HOME OR SELFCARE Is pt being admited?: No Condition: Stable Instructions: Abdominal Pain, Adult, Nausea and Vomiting, Adult, Gastroparesis, Diabetes Mellitus Type 2 in Adults (ED), Abdominal Pain (ED) Additional Instructions: Increase your oral rehydration. Please follow-up with your primary care physician and form setter [employer] forms. Since you have had some difficulty in making appointments with your PCP and form setter steel [employer] forms, I am giving you some other outpatient referrals/options for follow-up. You have been prescribed a medication that is sedating and therefore should not be taken prior to driving, working, and responsible for children and in no way should be mixed with alcohol of any quantity. Return to the emergency department with any worsening of your symptoms, new or concerning symptoms not addressed during this current emergency department visit, or with any acute distress. Prescriptions: LORazepam [Ativan] 0.5 mg PO BID PRN #8 tab PRN Reason: gastroparesis Metoclopramide [Reglan TAB] 10 mg PO TID PRN #20 tab PRN Reason: Nausea Referrals: ORTIZ BOYLE MD [Primary Care Provider] - 3-5 Days KATHERINE BARRY MD [Staff Physician] - 3-5 Days [facility] [Provider Group] - 3-5 Days [facility] [Provider Group] - 3-5 Days Time of Disposition: 01:47
--- NOTE | 2020-01-26 00:02 | XRay Report ---
ABDOMEN 2 VIEW(S) INDICATION / CLINICAL INFORMATION: Abd pain. COMPARISON: Abdominal radiograph 04/13/2019 FINDINGS: TUBES / LINES: None. BOWEL GAS PATTERN: No significant abnormality. FREE AIR / EXTRALUMINAL GAS: None seen. ADDITIONAL FINDINGS: No significant additional findings. IMPRESSION: 1. No significant abnormality. Signer Name: Shaila Khalil MD Signed: 01/25/2020 11:58 PM Workstation Name: [id number]
[2020-01-26 02:38] VITALS: BP 129/86
== END 2020-01-26 03:15 | disposition home or self-care (01) ==
LOC: ED 13:59
DX: E13.43 Other specified diabetes mellitus with diabetic autonomic (poly)neuropathy (principal); K31.84 Gastroparesis
CPT/HCPCS: 36415; 74019; 80053; 82962; 83690; 84703; 85025; 96361; 96375; 99284; J1200; J2060; J7030; Q0162

== ENCOUNTER 2021-11-15 17:14 | Emergency (ER) | payer SELFPAY ==
[2021-11-15 17:27] VITALS: BP 196/106
[2021-11-15] MEDS ORDERED: METOCLOPRAMIDE 10 MG/2 ML INJ IV ONE (21:07)
[2021-11-15] MEDS ORDERED: SODIUM CHLORIDE 0.9% 1000 ML 1,000 ML IV ONE (21:07)
[2021-11-15] MEDS ORDERED: diphenhydrAMINE 50 MG/ML VIAL IV ONE (21:07)
--- NOTE | 2021-11-15 21:48 | Emergency Department Report ---
ED Abdominal Pain HPI - General Chief Complaint: Abdominal Pain Stated Complaint: ABDOMINAL PAIN Time Seen by Provider: 11/15/21 21:06 Source: patient, EMS Mode of arrival: Ambulatory Limitations: No Limitations - History of Present Illness Initial Comments: Is a 21-year-old female with history of diabetes type 1 and recurring gastroparesis. Patient denies smoking or substance. There is been no fevers no chills. Who presents for left upper quadrant pain with nausea vomiting x10 days. Is a recurrent problem with this patient. Pain is described as 7/10 achy sharp. Patient is followed by [facility]. States usual treatment is Reglan Benadryl morphine and Zofran.. Patient rates this episode as usual occurrence of exacerbation of her gastroparesis. Patient states last p.o. intake 3 days ago. Last menstrual cycle 2 weeks ago MD Complaint: abdominal pain - Related Data Home Medications Medication Instructions Recorded Confirmed Last Taken Insulin NPH Hum/Reg Insulin Hm 1 each SQ 4XD 05/31/13 12/19/19 04/10/19 [NovoLIN 70-30 100 Unit/ml Vial] Previous Rx's Medication Instructions Recorded Last Taken Type Famotidine [Pepcid] 20 mg PO BID #60 tablet 12/15/17 Unknown Rx Acetaminophen [Acetaminophen TAB] 325 mg PO Q4H PRN #15 tablet 04/15/19 Unknown Rx Promethazine [Phenergan] 25 mg VA Q6HR PRN #20 supp.rect 12/17/19 Unknown Rx Promethazine [Phenergan SUPPOS] 25 mg VA QHS PRN #7 supp.rect 12/18/19 Unknown Rx Promethazine [Phenergan] 25 mg PO Q6HR PRN #20 tab 12/18/19 Unknown Rx Gabapentin 900 mg PO Q8HR #90 capsule 12/19/19 Unknown Rx Insulin Regular, Human [HumuLIN R] 6 dose SQ Q4HR PRN #1 vial 12/19/19 Unknown Rx LORazepam [Ativan] 1 mg PO QHS #10 tab 12/19/19 Unknown Rx lisinopriL [Zestril TAB] 10 mg PO QDAY #30 tablet 12/19/19 Unknown Rx LORazepam [Ativan] 0.5 mg PO BID PRN #8 tab 01/26/20 Unknown Rx Metoclopramide [Reglan TAB] 10 mg PO TID PRN #20 tab 12/07/20 Unknown Rx Allergies Allergy/AdvReac Type Severity Reaction Status Date / Time clindamycin Allergy Swelling Verified 11/15/21 17:28 ED Review of Systems ROS: Stated complaint: ABDOMINAL PAIN Other details as noted in HPI Constitutional: denies: chills, fever Eyes: denies: eye pain, eye discharge, vision change ENT: denies: ear pain, throat pain Respiratory: denies: cough, shortness of breath, wheezing Cardiovascular: denies: chest pain, palpitations Endocrine: no symptoms reported Gastrointestinal: abdominal pain, nausea, vomiting. denies: diarrhea, constipation, hematemesis, melena, hematochezia Genitourinary: denies: urgency, dysuria, frequency, hematuria, discharge Musculoskeletal: denies: back pain, joint swelling, arthralgia Skin: denies: rash, lesions Neurological: denies: headache, weakness, paresthesias, vertigo Psychiatric: denies: anxiety, depression Hematological/Lymphatic: denies: easy bleeding, easy bruising ED Past Medical Hx - Past Medical History Hx Congestive Heart Failure: No Hx Diabetes: Yes (IDDM) Hx Asthma: No Hx COPD: No Additional medical history: Juvenile-onset diabetes, history of DKA. neuropathy, Gastroparesisi - Social History Smoking Status: Never Smoker Substance Use Type: None - Medications Home Medications: Home Medications Medication Instructions Recorded Confirmed Last Taken Type Insulin NPH Hum/Reg Insulin Hm 1 each SQ 4XD 05/31/13 12/19/19 04/10/19 History [NovoLIN 70-30 100 Unit/ml Vial] Famotidine [Pepcid] 20 mg PO BID #60 tablet 12/15/17 12/19/19 Unknown Rx Acetaminophen [Acetaminophen TAB] 325 mg PO Q4H PRN #15 tablet 04/15/19 12/19/19 Unknown Rx Promethazine [Phenergan] 25 mg VA Q6HR PRN #20 supp.rect 12/17/19 12/19/19 Unknown Rx Promethazine [Phenergan SUPPOS] 25 mg VA QHS PRN #7 supp.rect 12/18/19 Unknown Rx Promethazine [Phenergan] 25 mg PO Q6HR PRN #20 tab 12/18/19 Unknown Rx Gabapentin 900 mg PO Q8HR #90 capsule 10/30/20 Unknown Rx Insulin Regular, Human [HumuLIN R] 6 dose SQ Q4HR PRN #1 vial 12/19/19 Unknown Rx LORazepam [Ativan] 1 mg PO QHS #10 tab 12/19/19 Unknown Rx lisinopriL [Zestril TAB] 10 mg PO QDAY #30 tablet 12/19/19 Unknown Rx LORazepam [Ativan] 0.5 mg PO BID PRN #8 tab 01/26/20 Unknown Rx Metoclopramide [Reglan TAB] 10 mg PO TID PRN #20 tab 01/26/20 Unknown Rx ED Physical Exam - General Limitations: No Limitations General appearance: alert, in no apparent distress - Head Head exam: Present: atraumatic, normocephalic - Eye Eye exam: Present: normal appearance, PERRL, EOMI Pupils: Present: normal accommodation - ENT ENT exam: Present: mucous membranes moist - Neck Neck exam: Present: normal inspection, full ROM. Absent: tenderness, lymphadenopathy - Respiratory Respiratory exam: Present: normal lung sounds bilaterally. Absent: respiratory distress, wheezes, stridor - Cardiovascular Cardiovascular Exam: Present: regular rate, normal rhythm, normal heart sounds. Absent: systolic murmur, diastolic murmur, rubs, gallop - GI/Abdominal GI/Abdominal exam: Present: soft, normal bowel sounds. Absent: distended, tenderness, guarding, rebound, rigid, bruit, hernia - Rectal Rectal exam: Present: deferred - Extremities Exam Extremities exam: Present: normal inspection, full ROM, normal capillary refill. Absent: tenderness - Back Exam Back exam: Present: normal inspection, full ROM. Absent: CVA tenderness (R), CVA tenderness (L) - Neurological Exam Neurological exam: Present: alert, oriented X3, CN II-XII intact, normal gait - Expanded Neurological Exam Expanded Patient oriented to: Present: person, place, time Speech: Present: fluid speech Motor strength exam: RUE: 5, LUE: 5, RLE: 5, LLE: 5 Best Eye Response ([place]): (4) open spontaneously Best Motor Response (Ramakrishna): (6) obeys commands Best Verbal Response ([place]): (5) oriented [place] Total: 15 - Psychiatric Psychiatric exam: Present: normal affect, normal mood - Skin Skin exam: Present: warm, dry, intact, normal color. Absent: rash ED Course Vital Signs 09/27/22 17:25 Temperature 97 F L Pulse Rate 105 H Respiratory 18 Rate Blood Pressure 196/106 [Left] O2 Sat by Pulse 99 Oximetry ED Medical Decision Making - Medical Decision Making Patient eloped prior to completion of diagnostics and treatment. Patient called did not answer x3. Patient eloped Critical care attestation.: If time is entered above; I have spent that time in minutes in the direct care of this critically ill patient, excluding procedure time. ED Disposition Clinical Impression: Abdominal pain Qualifiers: Abdominal location: generalized Qualified Code(s): R10.84 - Generalized abdominal pain Disposition: 07 LEFT AWOL/ELOPED Is pt being admited?: No Does the pt Need Aspirin: No Condition: Undetermined Instructions: Abdominal Pain (ED), Abdominal Pain, Adult, [id number] Time of Disposition: 23:03
== END 2021-11-15 23:00 | disposition left against medical advice (07) ==
LOC: ED 17:14
DX: R10.12 Left upper quadrant pain (principal); R11.2 Nausea with vomiting, unspecified; E10.43 Type 1 diabetes mellitus with diabetic autonomic (poly)neuropathy; K31.84 Gastroparesis; Z79.4 Long term (current) use of insulin; Z79.899 Other long term (current) drug therapy; Z88.1 Allergy status to other antibiotic agents
CPT/HCPCS: 99282; J1200; J2765